=== PATIENT | female | born 1980 | race African-American/Black ===

== ENCOUNTER 2017-06-27 15:46 | Inpatient (IN) | payer OTHER ==
[2017-06-27 18:58] VITALS: BMI 38.9
--- NOTE | 2017-06-27 19:05 | HP ---
COWS - Scale Resting Pulse: 1= [place] 81-100 Sweatin= Chills/Flushing Restless Observation: 3= Extraneous Movement Pupil Size: 0= Normal to Room Light Bone or Joint Aches: 2= Severe Diffuse Aches Runny Nose/ Eye Tearin= Runny Nose/Eyes GI Upset > 30mins: 1= Stomach Cramp Tremor Observation: 2= Slight Tremor Visible Yawning Observation: 0= None Anxiety or Irritability: 2=Irritable/Anxious Goose Flesh Skin: 0=Smooth Skin COWS Score: 14 CIWA Score - CIWA Score Nausea/Vomitin-Mild Nausea/No Vomiting Muscle Tremors: 3 Anxiety: 4-Mod. Anxious/Guarded Agitation: 3 Paroxysmal Sweats: 1-Minimal Palms Moist Orientation: 1-Uncertain about Date Tacttile Disturbances: 0-None Auditory Disturbances: 0-None Visual Disturbances: 0-None Headache: 1-Very Mild CIWA-Ar Total Score: 14 Admission ROS BHS - HPI Chief Complaint: WITHDRAWAL SX Allergies/Adverse Reactions: Allergies Allergy/AdvReac Type Severity Reaction Status Date / Time No Known Allergies Allergy Verified 10/16/16 14:56 History of Present Illness: 36 YEARS OLD FEMALE WITH LONG HISTORY OF ALCOHOL HEROIN NICOTINE DEPENDENCE HAS ASTHMA AND BIPOLAR II IS ADMITTED TO DETOX Exam Limitations: No Limitations - Ebola screening Have you traveled outside of the country in the last 21 days: No Have you had contact with anyone from an Ebola affected area: No Have you been sick,other than usual withdrawal symptoms: No Do you have a fever: No - Review of Systems Constitutional: Changes in sleep, Weight Stable EENT: reports: No Symptoms Reported Respiratory: reports: SOB with Exertion, Productive cough (GREENISH) Cardiac: reports: No Symptoms Reported GI: reports: Nausea, Poor Fluid Intake, Indigestion, Abdominal cramping : reports: No Symptoms Reported Musculoskeletal: reports: Back Pain, Joint Pain, Muscle Pain, Neck Pain Integumentary: reports: No Symptoms Reported Neuro: reports: Tremors Endocrine: reports: No Symptoms Reported Hematology: reports: No Symptoms Reported Psychiatric: reports: Judgement Intact, Anxious, Depressed Other Systems: Reviewed and Negative Patient History - Patient Medical History Hx Anemia: No Hx Asthma: Yes (ON ALBUTEROL INHALLER) Hx Chronic Obstructive Pulmonary Disease (COPD): No Hx Cancer: No Hx Cardiac Disorders: No Hx Congestive Heart Failure: No Hx Hypertension: No Hx Hypercholesterolemia: No Hx Pacemaker: No HX Cerebrovascular Accident: No Hx Seizures: No Hx Dementia: No Hx Diabetes: No Hx Gastrointestinal Disorders: No Hx Liver Disease: No Hx Genitourinary Disorders: No Hx Sexually Transmitted Disorders: No Hx Renal Disease (ESRD): No Hx Thyroid Disease: No Hx Human Immunodeficiency Virus (HIV): No (LAST 08/01) Hx Hepatitis C: No Hx Depression: No Hx Suicide Attempt: Yes (OVER DOSE AGE 18) Hx Bipolar Disorder: Yes Hx Schizophrenia: No - Patient Surgical History Past Surgical History: Yes Hx Neurologic Surgery: No Hx Cataract Extraction: No Hx Cardiac Surgery: No Hx Lung Surgery: No Hx Breast Surgery: No Hx Breast Biopsy: No Hx Abdominal Surgery: No Hx Appendectomy: No Hx Cholecystectomy: No Hx Genitourinary Surgery: No Hx Section: No Hx Orthopedic Surgery: Yes (REMOVAL OF GANGLION LEFT WRIST 09/21) Hx Hysterectomy: No Other Surgical History: REMOVED LEFT TUBE AND OVARY 2011 Anesthesia Reaction: No - PPD History Previous Implant?: Yes Documented Results: Negative w/proof Implanted On Prior [facility] Admission?: Yes Date: 05/23/16 Results: 0 MM PPD to be Administered?: Yes - Reproductive History Patient is a Female of Child Bearing Age (11 -55 yrs old): Yes Last Menstrual Period: 06/03/17 Patient : No - Smoking Cessation Smoking history: Current every day smoker Have you smoked in the past 12 months: Yes Aproximately how many cigarettes per day: 20 Cigars Per Day: 0 Hx Chewing Tobacco Use: No Initiated information on smoking cessation: Yes 'Breaking Loose' booklet given: 06/27/17 - Substance & Tx. History Hx Alcohol Use: Yes Hx Substance Use: Yes Substance Use Type: Alcohol, Cocaine, Heroin, Marijuana Hx Substance Use Treatment: Yes (10/16-10/23/16 [facility]) - Substances Abused Alcohol Route: Oral Frequency: Daily Amount used: VOLKA 5 PINTS Age of first use: 21 Date of Last Use: 06/27/17 Heroin Route: Inhalation Frequency: Daily Amount used: 4 BAGS Age of first use: 35 Date of Last Use: 06/27/17 Family Disease History - Family Disease History Family Disease History: Diabetes: Grandparent, Other: Father (ADE'S), Mother Admission Physical Exam BHS - Vital Signs Vital Signs: Vital Signs - 24 hr 06/27/17 18:46 Temperature 98.9 F Pulse Rate 90 Respiratory 18 Rate Blood Pressure 130/90 - Physical General Appearance: Yes: Appropriately Dressed, Mild Distress, Obese, Tremorous , Irritable, Sweating, Anxious HEENTM: Yes: Hearing grossly Normal, Normal ENT Inspection, Normocephalic, Normal Voice Respiratory: Yes: Chest Non-Tender, Lungs Clear, Normal Breath Sounds, No Respiratory Distress, No Accessory Muscle Use Neck: Yes: Supple, Trachea in good position Breast: Yes: Breasts Symetrical Cardiology: Yes: Regular Rhythm, S1, S2, Tachycardia Abdominal: Yes: Non Tender, Soft, Increased Bowel Sounds Genitourinary: Yes: Within Normal Limits Back: Yes: Normal Inspection Musculoskeletal: Yes: full range of Motion, Gait Steady, Back pain, Muscle Pain Extremities: Yes: Normal Range of Motion, Non-Tender, Tremors, Swelling (RIGHT FOOT) Neurological: Yes: Fully Oriented, Alert, Motor Strength 5/5, Normal Response, Depressed Affect Integumentary: Yes: Warm Lymphatic: Yes: Within Normal Limits - Diagnostic (1) Alcohol dependence with uncomplicated withdrawal Current Visit: Yes Status: Acute (2) Nicotine dependence Current Visit: Yes Status: Acute Qualifiers: Nicotine product type: cigarettes Substance use status: in withdrawal Qualified Code(s): F17.213 - Nicotine dependence, cigarettes, with withdrawal (3) Opioid dependence with withdrawal Current Visit: Yes Status: Acute (4) Asthma Current Visit: Yes Status: Chronic Qualifiers: Asthma severity: mild intermittent Asthma complication type: with status asthmaticus Qualified Code(s): J45.22 - Mild intermittent asthma with status asthmaticus (5) Bipolar 1 disorder, manic, moderate Current Visit: No Status: Suspected (6) GERD (gastroesophageal reflux disease) Current Visit: Yes Status: Chronic Qualifiers: Esophagitis presence: without esophagitis Qualified Code(s): K21.9 - Gastro-esophageal reflux disease without esophagitis Cleared for Admission [facility] - Detox or Rehab [facility] Level of Care: Medically Managed Detox Regimen/Protocol: Methadone/Librium [facility] Breath Alcohol Content Breath Alcohol Content: 0 Urine Pregancy Test - Result Urine Test Results: Negative- NO Line Present Urine Drug Screen - Results Drug Screen Negative: No Urine Drug Screen Results: THC-Marijuana, RO[place]-Cocaine, OPI-Opiates
[2017-06-27] MEDS ORDERED: METHADONE HCL 10 MG TABLET (FOR DETOX USE ONLY) PO ONE ×2 (19:14→23:00)
[2017-06-27] MEDS ORDERED: LOPERAMIDE HCL 2 MG CAPSULE PO PRN (19:14)
[2017-06-27] MEDS ORDERED: ACETAMINOPHEN 325 MG TABLET (FP) PO PRN (19:14)
[2017-06-27] MEDS ORDERED: guaiFENesin/D-METHORPHAN HB 10 ML UNIT-DOSE CUPS PO PRN (19:14)
[2017-06-27] MEDS ORDERED: P-EPHED 60MG/TRIPROLIDI 2.5MG TABLET PO PRN (19:14)
[2017-06-27] MEDS ORDERED: NICOTINE POLACRILEX 4 MG GUM BUC PRN (19:14)
[2017-06-27] MEDS ORDERED: MAGNESIUM CITRATE 300 ML BOTTLE PO PRN (19:14)
[2017-06-27] MEDS ORDERED: diphenhydrAMINE HCL 50 MG CAPSULE PO PRN (19:14)
[2017-06-27] MEDS ORDERED: chlordiazePOXIDE HCL 25 MG CAPSULE PO PRN (19:14)
[2017-06-27] MEDS ORDERED: MAGNESIUM HYDROX 2400MG/30ML ORAL SUSPENSION 30 ML CUP PO PRN (19:14)
[2017-06-27] MEDS ORDERED: MAG HYDROX/AL HYDROX/SIMETH 30 ML UNIT-DOSE CUP PO PRN (19:14)
[2017-06-27] MEDS ORDERED: MENTHOL/PHENOL 1 EACH UD MM PRN (19:14)
[2017-06-27] MEDS ORDERED: ALBUTEROL SO4 6.7 GM HFA INHALER IH PRN (19:15)
[2017-06-27] MEDS ORDERED: METHADONE HCL 10 MG TABLET (FOR DETOX USE ONLY) ONE (22:45)
[2017-06-27] MEDS: chlordiazePOXIDE HCL 25 MG CAPSULE PO SCH (22:46)
[2017-06-27] MEDS: THIAMINE HCL 100 MG TABLET (FP) PO SCH (22:46)
[2017-06-27] MEDS: RANITIDINE HCL 150 MG TABLET (FP) PO SCH (22:47)
[2017-06-27 23:46] LABS: URINE APPEARANCE SLCLOUDY; URINE BILIRUBIN NEGATIVE (NEGATIVE); URINE BLOOD NEGATIVE (NEGATIVE); URINE COLOR AMBER; URINE GLUCOSE (UA) NEGATIVE (NEGATIVE); URINE KETONE NEGATIVE (NEGATIVE); URINE LEUK ESTERASE NEGATIVE (NEGATIVE); URINE NITRITE NEGATIVE (NEGATIVE); URINE UROBILINOGEN 4.0 E.U/dl mg/dL (0.2-1.0)
[2017-06-27 23:58] LABS: URINE PROTEIN 1+ (NEGATIVE)
[2017-06-28 00:03] LABS: URINE BACTERIA RARE /hpf (NONE SEEN); URINE MUCUS MODERATE; URINE RBC <1 /hpf (0-3); URINE WBC 1 /hpf (3-5)
[2017-06-28] MEDS: chlordiazePOXIDE HCL 25 MG CAPSULE PO SCH ×4 (06:39→22:27)
--- NOTE | 2017-06-28 09:20 | CONSULT ---
[facility] Psychiatric Consult - Data Date of interview: 06/28/17 Admission source: [facility] Identifying data: This is 36 years old AA female ,single,homelles,supported by PA. Substance Abuse History: Reports using heroin since 35 yo,spending about $40 daily,drinking since 21 years old (pint of whiskey,beer),crack/cocaine since 29 years old,$200. Medical History: Significant for BA,Disk disease. Psychiatric History: Reports being dx with Bipolar disorder with a few psychiatric hospitalizations,history of suicidal attempts.She is currently under psychiatric care at [facility].Medications:Neurontin 300 mg po bid,Prozac 40 mg po daily,abilify 20 mg po daily,Doxepin 150 mg po hs and Topamaxd 100 mg po bid. Physical/Sexual Abuse/Trauma History: denies history of sexual,physical abuse. Mental Status Exam - Mental Status Exam Alert and Oriented to: Time, Place, Person Cognitive Function: Grossly Intact Patient Appearance: Unkempt Mood: Sad Affect: Mood Congruent Patient Behavior: Sedated Speech Pattern: Clear Voice Loudness: Normal Thought Process: Goal Oriented Thought Disorder: Being Controlled Hallucinations: Denies Suicidal Ideation: Denies Homicidal Ideation: Denies Insight/Judgement: Fair Sleep: Fair Appetite: Fair Muscle strength/Tone: Normal Gait/Station: Normal Psychiatric Findings - Problem List (Protem 1, 2,3) (1) Alcohol dependence with uncomplicated withdrawal Current Visit: Yes Status: Chronic (2) Nicotine dependence Current Visit: Yes Status: Chronic Qualifiers: Nicotine product type: cigarettes Substance use status: in withdrawal Qualified Code(s): F17.213 - Nicotine dependence, cigarettes, with withdrawal (3) Opioid dependence with withdrawal Current Visit: Yes Status: Chronic (4) Asthma Current Visit: Yes Status: Chronic Qualifiers: Asthma severity: mild intermittent Asthma complication type: with status asthmaticus Qualified Code(s): J45.22 - Mild intermittent asthma with status asthmaticus (5) GERD (gastroesophageal reflux disease) Current Visit: Yes Status: Chronic Qualifiers: Esophagitis presence: without esophagitis Qualified Code(s): K21.9 - Gastro-esophageal reflux disease without esophagitis (6) Anemia Current Visit: Yes Status: Chronic (7) Bipolar disorder Current Visit: Yes Status: Suspected (8) Cocaine dependence in controlled environment Current Visit: Yes Status: Chronic - Initial Treatment Plan Initial Treatment Plan: Continue current medications as per plan.
[2017-06-28] MEDS ORDERED: METHADONE HCL 10 MG TABLET (FOR DETOX USE ONLY) PO SCH (10:00)
--- NOTE | 2017-06-28 10:07 | PN ---
[facility] CIWA - CIWA Score Nausea/Vomitin Muscle Tremors: 3 Anxiety: 3 Agitation: 2 Paroxysmal Sweats: 1-Minimal Palms Moist Orientation: 0-Oriented Tacttile Disturbances: 1-Very Mild Itch/Numbness Auditory Disturbances: 1-Very Mild Visual Disturbances: 1-Very Mild Sensitivity Headache: 2-Mild CIWA-Ar Total Score: 17 BHS COWS - Scale Resting Pulse: 0= [place] 80 or Below Sweatin= Chills/Flushing Restless Observation: 3= Extraneous Movement Pupil Size: 1= Pupils >than Normal Bone or Joint Aches: 2= Severe Diffuse Aches Runny Nose/ Eye Tearin= Runny Nose/Eyes GI Upset > 30mins: 2= Nausea/Diarrhea Tremor Observation of Outstretched Hands: 2= Slight Tremor Visible Yawning Observation: 1= 1-2x During Session Anxiety or Irritability: 2=Irritable/Anxious Goose Flesh Skin: 0=Smooth Skin COWS Score: 16 S Progress Note (SOAP) Subjective: alert,pain in the body and back,tremor,irritable,interrupted sleep,swelling with pain in the right foot for 2 weeks,denied trauma Objective: 06/28/17 10:05 Vital Signs Temperature 97.3 F L 06/28/17 06:54 Pulse Rate 72 06/28/17 06:54 Respiratory Rate 18 06/28/17 06:54 Blood Pressure 101/58 06/28/17 06:54 O2 Sat by Pulse Oximetry (%) ekg normal ecg 06/28/17 10:06 labs pending Assessment: 06/28/17 10:06 withdrawal symptom Plan: continue detox,x ray of right foot today
[2017-06-28 10:21] LABS: MCH 30.9 pg (25.7-33.7); MCHC 32.8 g/dl (32.0-36.0); MEAN CELL VOLUME 94.2 fl (80-96); MEAN PLT VOLUME 8.8 fl (7.5-11.1); PLATELET COUNT 268 K/MM3 (134-434); RDW 13.6 % (11.6-15.6); WHITE BLOOD COUNT 7.3 K/mm3 (4.0-10.0)
[2017-06-28] MEDS: RANITIDINE HCL 150 MG TABLET (FP) PO SCH ×2 (10:30→22:26)
[2017-06-28] MEDS: PRENATAL VITAMINS W/ FOLIC ACID TABLET (FP) PO SCH (10:30)
[2017-06-28] MEDS: ARIPiprazole 10 MG TABLET PO SCH (10:31)
[2017-06-28] MEDS: GABAPENTIN 300 MG CAPSULE (FP) PO SCH ×2 (10:32→22:26)
[2017-06-28] MEDS: NICOTINE 21 MG/24 HOURS TOPICAL PATCH TD SCH (10:35)
[2017-06-28] MEDS: FLUoxetine HCL 20 MG CAPSULE (FP) PO SCH (10:36)
[2017-06-28] MEDS: TOPIRAMATE 100 MG TABLET PO SCH ×2 (11:00→22:27)
[2017-06-28 11:43] LABS: ALK PHOS 71 U/L (45-117); ANION GAP 10 (8-16); BILIRUBIN,TOTAL 0.4 mg/dL (0.2-1.0); CALCIUM 8.4 mg/dL (8.5-10.1); CO2 24 mmol/L (21-32); CREATININE 0.9 mg/dL (0.55-1.02); GLUCOSE,RANDOM 107 mg/dL (74-106); SGOT/AST 10 U/L (15-37); SGPT/ALT 15 U/L (12-78); TOT PROT 6.3 g/dl (6.4-8.2)
[2017-06-28 11:51] LABS: HIV 1 & 2 AB NEGATIVE; HIV 1 AGp24 NEGATIVE
[2017-06-28] MEDS ORDERED: PNEUMOC 13-VAL CONJ-DIP CRM/PF 0.5 ML DISP.SYRIN IM ONE (15:57)
[2017-06-28] MEDS: THIAMINE HCL 100 MG TABLET (FP) PO SCH (22:26)
[2017-06-28] MEDS: DOXEPIN HCL 50 MG CAPSULE PO SCH (22:27)
[2017-06-29] MEDS: chlordiazePOXIDE HCL 25 MG CAPSULE PO SCH ×3 (06:33→18:21)
--- NOTE | 2017-06-29 09:51 | EKG ---
Test Reason : Blood Pressure : / mmHG Vent. Rate : 077 BPM Atrial Rate : 077 BPM P-R Int : 152 ms QRS Dur : 088 ms QT Int : 394 ms P-R-T Axes : 029 075 066 degrees QTc Int : 445 ms NORMAL SINUS RHYTHM NORMAL ECG WHEN COMPARED WITH ECG OF 17-OCT-2016 06:28, T WAVE INVERSION NOW EVIDENT IN ANTERIOR LEADS Confirmed by MD TIMOTHY, SCARLET ([id number]) on 06/29/2017 9:50:47 AM Referred By: Confirmed By:SCARLET AGUIRRE MD
[2017-06-29] MEDS: FLUoxetine HCL 20 MG CAPSULE (FP) PO SCH (10:55)
[2017-06-29] MEDS: RANITIDINE HCL 150 MG TABLET (FP) PO SCH ×2 (10:55→22:20)
[2017-06-29] MEDS: PRENATAL VITAMINS W/ FOLIC ACID TABLET (FP) PO SCH (10:56)
[2017-06-29] MEDS: GABAPENTIN 300 MG CAPSULE (FP) PO SCH ×2 (10:56→22:20)
[2017-06-29] MEDS: TOPIRAMATE 100 MG TABLET PO SCH ×2 (10:56→22:20)
[2017-06-29] MEDS: METHADONE HCL 5 MG TABLET (FOR DETOX USE ONLY) PO SCH (10:56)
[2017-06-29] MEDS: NICOTINE 21 MG/24 HOURS TOPICAL PATCH TD SCH (10:56)
[2017-06-29] MEDS: ARIPiprazole 10 MG TABLET PO SCH (10:57)
[2017-06-29] MEDS ORDERED: PNEUMOCOCCAL 23 VACCINE 0.5 ML VIAL IM ONE (12:00)
[2017-06-29] MEDS: LIDOCAINE 5% TOPICAL PATCH TP SCH (12:00)
--- NOTE | 2017-06-29 12:31 | PN ---
[facility] CIWA - CIWA Score Nausea/Vomitin Muscle Tremors: 3 Anxiety: 2 Agitation: 3 Paroxysmal Sweats: 1-Minimal Palms Moist Orientation: 0-Oriented Tacttile Disturbances: 1-Very Mild Itch/Numbness Auditory Disturbances: 1-Very Mild Visual Disturbances: 1-Very Mild Sensitivity Headache: 2-Mild CIWA-Ar Total Score: 17 BHS COWS - Scale Resting Pulse: 2= [place] 101-120 Sweatin= Chills/Flushing Restless Observation: 3= Extraneous Movement Pupil Size: 1= Pupils >than Normal Bone or Joint Aches: 2= Severe Diffuse Aches Runny Nose/ Eye Tearin= Runny Nose/Eyes GI Upset > 30mins: 2= Nausea/Diarrhea Tremor Observation of Outstretched Hands: 2= Slight Tremor Visible Yawning Observation: 1= 1-2x During Session Anxiety or Irritability: 2=Irritable/Anxious Goose Flesh Skin: 0=Smooth Skin COWS Score: 18 S Progress Note (SOAP) Subjective: alert,irritable,anxious,interrupted sleep,tremor,pain in the body and back Objective: 06/29/17 12:28 Vital Signs Temperature 97.7 F 06/29/17 10:57 Pulse Rate 114 H 06/29/17 10:57 Respiratory Rate 16 06/29/17 10:57 Blood Pressure 100/65 06/29/17 10:57 O2 Sat by Pulse Oximetry (%) Laboratory Last Values WBC 7.3 K/mm3 (4.0-10.0) 06/28/17 07:40 RBC 3.50 M/mm3 (3.60-5.2) L 06/28/17 07:40 Hgb 10.8 GM/dL (10.7-15.3) 06/28/17 07:40 Hct 32.9 % (32.4-45.2) 06/28/17 07:40 MCV 94.2 fl (80-96) 06/28/17 07:40 MCH 30.9 pg (25.7-33.7) 06/28/17 07:40 MCHC 32.8 g/dl (32.0-36.0) 06/28/17 07:40 RDW 13.6 % (11.6-15.6) 06/28/17 07:40 Plt Count 268 K/MM3 (134-434) D 06/28/17 07:40 MPV 8.8 fl (7.5-11.1) 06/28/17 07:40 Sodium 142 mmol/L (136-145) 06/28/17 07:40 Potassium 3.9 mmol/L (3.5-5.1) 06/28/17 07:40 Chloride 108 mmol/L (98-107) H 06/28/17 07:40 Carbon Dioxide 24 mmol/L (21-32) D 06/28/17 07:40 Anion Gap 10 (8-16) 06/28/17 07:40 BUN 12 mg/dL (7-18) 06/28/17 07:40 Creatinine 0.9 mg/dL (0.55-1.02) 06/28/17 07:40 Creat Clearance w eGFR > 60 (>60) 06/28/17 07:40 Random Glucose 107 mg/dL (74-106) H D 06/28/17 07:40 Calcium 8.4 mg/dL (8.5-10.1) L 06/28/17 07:40 Total Bilirubin 0.4 mg/dL (0.2-1.0) D 06/28/17 07:40 AST 10 U/L (15-37) L D 06/28/17 07:40 ALT 15 U/L (12-78) D 06/28/17 07:40 Alkaline Phosphatase 71 U/L (45-117) 06/28/17 07:40 Total Protein 6.3 g/dl (6.4-8.2) L 06/28/17 07:40 Albumin 3.0 g/dl (3.4-5.0) L 06/28/17 07:40 Urine Color Jeannie 06/27/17 21:59 Urine Appearance Slcloudy 06/27/17 21:59 Urine pH 5.0 (5.0-8.0) D 06/27/17 21:59 Ur Specific [place] >= 1.030 (1.005-1.025) H 06/27/17 21:59 Urine Protein 1+ (NEGATIVE) H 06/27/17 21:59 Urine Glucose (UA) Negative (NEGATIVE) 06/27/17 21:59 Urine Ketones Negative (NEGATIVE) 06/27/17 21:59 Urine Blood Negative (NEGATIVE) 06/27/17 21:59 Urine Nitrite Negative (NEGATIVE) 06/27/17 21:59 Urine Bilirubin Negative (NEGATIVE) 06/27/17 21:59 Urine Urobilinogen 4.0 e.u/dl mg/dL (0.2-1.0) H 06/27/17 21:59 Urine RBC <1 /hpf (0-3) 06/27/17 21:59 Urine WBC 1 /hpf (3-5) 06/27/17 21:59 Ur Epithelial Cells Rare /hpf (FEW) 06/27/17 21:59 Urine Bacteria Rare /hpf (NONE SEEN) 06/27/17 21:59 Urine Mucus Moderate 06/27/17 21:59 RPR Titer Nonreactive (NONREACTIVE) 06/28/17 07:40 Hepatitis C Antibody <0.1 s/co ratio (0.0-0.9) 06/28/17 07:40 HIV 1&2 Antibody Screen Negative 06/28/17 07:40 HIV P24 Antigen Negative 06/28/17 07:40 Assessment: 06/29/17 12:29 withdrawal symptom Plan: continue detox,lidoderm patch for low back pain
[2017-06-29] MEDS: LIDOCAINE PATCH REMOVAL MC SCH (22:20)
[2017-06-29] MEDS: DOXEPIN HCL 50 MG CAPSULE PO SCH (22:20)
[2017-06-29] MEDS: THIAMINE HCL 100 MG TABLET (FP) PO SCH (22:20)
[2017-06-29] MEDS: chlordiazePOXIDE 5 MG CAPSULE PO SCH (22:23)
[2017-06-30] MEDS: chlordiazePOXIDE 5 MG CAPSULE PO SCH ×3 (05:44→17:44)
--- NOTE | 2017-06-30 09:08 | PN ---
BHS Progress Note (SOAP) Subjective: ALERT,IRRITABLE,ANXIOUS,INTERRUPTED SLEEP,PAIN IN THE BACK BODY Objective: 06/30/17 09:07 Laboratory Last Values WBC 7.3 K/mm3 (4.0-10.0) 06/28/17 07:40 RBC 3.50 M/mm3 (3.60-5.2) L 06/28/17 07:40 Hgb 10.8 GM/dL (10.7-15.3) 06/28/17 07:40 Hct 32.9 % (32.4-45.2) 06/28/17 07:40 MCV 94.2 fl (80-96) 06/28/17 07:40 MCH 30.9 pg (25.7-33.7) 06/28/17 07:40 MCHC 32.8 g/dl (32.0-36.0) 06/28/17 07:40 RDW 13.6 % (11.6-15.6) 06/28/17 07:40 Plt Count 268 K/MM3 (134-434) D 06/28/17 07:40 MPV 8.8 fl (7.5-11.1) 06/28/17 07:40 Sodium 142 mmol/L (136-145) 06/28/17 07:40 Potassium 3.9 mmol/L (3.5-5.1) 06/28/17 07:40 Chloride 108 mmol/L (98-107) H 06/28/17 07:40 Carbon Dioxide 24 mmol/L (21-32) D 06/28/17 07:40 Anion Gap 10 (8-16) 06/28/17 07:40 BUN 12 mg/dL (7-18) 06/28/17 07:40 Creatinine 0.9 mg/dL (0.55-1.02) 06/28/17 07:40 Creat Clearance w eGFR > 60 (>60) 06/28/17 07:40 Random Glucose 107 mg/dL (74-106) H D 06/28/17 07:40 Calcium 8.4 mg/dL (8.5-10.1) L 06/28/17 07:40 Total Bilirubin 0.4 mg/dL (0.2-1.0) D 06/28/17 07:40 AST 10 U/L (15-37) L D 06/28/17 07:40 ALT 15 U/L (12-78) D 06/28/17 07:40 Alkaline Phosphatase 71 U/L (45-117) 06/28/17 07:40 Total Protein 6.3 g/dl (6.4-8.2) L 06/28/17 07:40 Albumin 3.0 g/dl (3.4-5.0) L 06/28/17 07:40 Urine Color Jeannie 06/27/17 21:59 Urine Appearance Slcloudy 06/27/17 21:59 Urine pH 5.0 (5.0-8.0) D 06/27/17 21:59 Ur Specific [place] >= 1.030 (1.005-1.025) H 06/27/17 21:59 Urine Protein 1+ (NEGATIVE) H 06/27/17 21:59 Urine Glucose (UA) Negative (NEGATIVE) 06/27/17 21:59 Urine Ketones Negative (NEGATIVE) 06/27/17 21:59 Urine Blood Negative (NEGATIVE) 06/27/17 21:59 Urine Nitrite Negative (NEGATIVE) 06/27/17 21:59 Urine Bilirubin Negative (NEGATIVE) 06/27/17 21:59 Urine Urobilinogen 4.0 e.u/dl mg/dL (0.2-1.0) H 06/27/17 21:59 Urine RBC <1 /hpf (0-3) 06/27/17 21:59 Urine WBC 1 /hpf (3-5) 06/27/17 21:59 Ur Epithelial Cells Rare /hpf (FEW) 06/27/17 21:59 Urine Bacteria Rare /hpf (NONE SEEN) 06/27/17 21:59 Urine Mucus Moderate 06/27/17 21:59 RPR Titer Nonreactive (NONREACTIVE) 06/28/17 07:40 Hepatitis C Antibody <0.1 s/co ratio (0.0-0.9) 06/28/17 07:40 HIV 1&2 Antibody Screen Negative 06/28/17 07:40 HIV P24 Antigen Negative 06/28/17 07:40 Assessment: 06/30/17 09:08 WITHDRAWAL SYMPTOM Plan: CONTINUE DETOX,X RAY OF RIGHT FOOT NO ACUTE PATHOLOGY
[2017-06-30] MEDS: FLUoxetine HCL 20 MG CAPSULE (FP) PO SCH (10:49)
[2017-06-30] MEDS: RANITIDINE HCL 150 MG TABLET (FP) PO SCH ×2 (10:49→22:53)
[2017-06-30] MEDS: TOPIRAMATE 100 MG TABLET PO SCH ×2 (10:49→22:54)
[2017-06-30] MEDS: PRENATAL VITAMINS W/ FOLIC ACID TABLET (FP) PO SCH (10:49)
[2017-06-30] MEDS: METHADONE HCL 5 MG TABLET (FOR DETOX USE ONLY) PO SCH (10:50)
[2017-06-30] MEDS: GABAPENTIN 300 MG CAPSULE (FP) PO SCH ×2 (10:50→22:54)
[2017-06-30] MEDS: LIDOCAINE 5% TOPICAL PATCH TP SCH (10:52)
[2017-06-30] MEDS: ARIPiprazole 10 MG TABLET PO SCH (10:53)
[2017-06-30] MEDS: NICOTINE 21 MG/24 HOURS TOPICAL PATCH TD SCH (10:54)
[2017-06-30] MEDS: DOXEPIN HCL 50 MG CAPSULE PO SCH (22:53)
[2017-06-30] MEDS: THIAMINE HCL 100 MG TABLET (FP) PO SCH (22:53)
[2017-06-30] MEDS: chlordiazePOXIDE HCL 10 MG CAPSULE PO SCH (23:14)
[2017-06-30] MEDS: LIDOCAINE PATCH REMOVAL MC SCH (23:15)
[2017-07-01] MEDS: chlordiazePOXIDE HCL 10 MG CAPSULE PO SCH ×3 (06:45→17:36)
[2017-07-01] MEDS ORDERED: ARIPiprazole 5 MG TABLET (FP) ONE (09:09)
[2017-07-01] MEDS ORDERED: METHADONE HCL 10 MG TABLET (FOR DETOX USE ONLY) PO SCH (10:00)
--- NOTE | 2017-07-01 10:08 | PN ---
BHS Progress Note (SOAP) Subjective: ALERT,INTERRUPTED SLEEP Objective: 07/01/17 10:07 Vital Signs Temperature 97.2 F L 07/01/17 06:36 Pulse Rate 101 H 07/01/17 06:36 Respiratory Rate 16 07/01/17 06:36 Blood Pressure 103/65 07/01/17 06:36 O2 Sat by Pulse Oximetry (%) 07/01/17 10:11 Assessment: 07/01/17 10:08 WITHDRAWAL SYMPTOM 07/01/17 10:11 Plan: CONTINUE DETOX,DISCHARGE IN AM
[2017-07-01] MEDS: PRENATAL VITAMINS W/ FOLIC ACID TABLET (FP) PO SCH (10:20)
[2017-07-01] MEDS: TOPIRAMATE 100 MG TABLET PO SCH ×2 (10:20→22:47)
[2017-07-01] MEDS: GABAPENTIN 300 MG CAPSULE (FP) PO SCH ×2 (10:20→22:47)
[2017-07-01] MEDS: FLUoxetine HCL 20 MG CAPSULE (FP) PO SCH (10:20)
[2017-07-01] MEDS: RANITIDINE HCL 150 MG TABLET (FP) PO SCH ×2 (10:20→22:47)
[2017-07-01] MEDS: ARIPiprazole 10 MG TABLET PO SCH (10:21)
[2017-07-01] MEDS: NICOTINE 21 MG/24 HOURS TOPICAL PATCH TD SCH (10:21)
[2017-07-01] MEDS: LIDOCAINE 5% TOPICAL PATCH TP SCH (10:21)
[2017-07-01] MEDS: DOXEPIN HCL 50 MG CAPSULE PO SCH (22:47)
[2017-07-01] MEDS: THIAMINE HCL 100 MG TABLET (FP) PO SCH (22:47)
[2017-07-01] MEDS: LIDOCAINE PATCH REMOVAL MC SCH (22:55)
[2017-07-02] MEDS ORDERED: METHADONE HCL 5 MG TABLET (FOR DETOX USE ONLY) PO SCH (06:00)
--- NOTE | 2017-07-02 07:59 | DS ---
[facility] Detox Discharge Summary Admission Date: 06/27/17 Discharge Date: 07/02/17 - History Present History: Alcohol Dependence, Opioid Dependence Additional Comments: FOLLOW UP WITH AFTER CARE PROGRAM ARRANGEMENT Pertinent Past History: ASTHMA NICOTINE DEPENDENCE GERD BIPOLAR 1 DISORDER - Physical Exam Results Vital Signs: Vital Signs Temperature 96.9 F L 07/02/17 06:40 Pulse Rate 101 H 07/02/17 06:40 Respiratory Rate 20 07/02/17 06:40 Blood Pressure 104/66 07/02/17 06:40 O2 Sat by Pulse Oximetry (%) Pertinent Admission Physical Exam Findings: WITHDRAWAL FINDING - Treatment Hospital Course: Detox Protocol Followed, Detoxed Safely, Responded well, Discharged Condition Good Patient has Accepted a Rehab Referral to: [facility]CL[facility]ED - Medication Discharge Medications: Ambulatory Orders Aripiprazole [Abilify -] 20 mg PO DAILY 05/21/16 Doxepin HCl 150 mg PO HS 10/16/16 Naltrexone HCl [Revia -] 100 mg PO BID 10/16/16 Topiramate [Topamax -] 150 mg PO BID 10/16/16 Fluoxetine HCl [Prozac -] 40 mg PO DAILY #30 capsule 10/17/16 Albuterol Sulfate Inhaler - [Ventolin HFA Inhaler -] 2 puff IH Q4H PRN #1 inhaler 10/23/16 Aripiprazole [Abilify -] 20 mg PO DAILY #30 tablet 06/28/17 Doxepin HCl [Sinequan -] 150 mg PO HS #90 cap MDD 150 06/28/17 Fluoxetine HCl [Prozac -] 40 mg PO DAILY #60 cap 06/28/17 Gabapentin [Neurontin -] 300 mg PO BID #60 cap 06/28/17 Topiramate [Topamax -] 100 mg PO BID #60 tablet MDD 200 06/28/17 - Diagnosis (1) Opioid dependence with withdrawal Current Visit: Yes Status: Chronic (2) Alcohol dependence with uncomplicated withdrawal Current Visit: Yes Status: Chronic (3) Anemia Current Visit: Yes Status: Chronic (4) GERD (gastroesophageal reflux disease) Current Visit: Yes Status: Chronic Qualifiers: Esophagitis presence: without esophagitis Qualified Code(s): K21.9 - Gastro-esophageal reflux disease without esophagitis (5) Nicotine dependence Current Visit: Yes Status: Chronic Qualifiers: Nicotine product type: cigarettes Substance use status: in withdrawal Qualified Code(s): F17.213 - Nicotine dependence, cigarettes, with withdrawal (6) Bipolar disorder Current Visit: Yes Status: Suspected (7) Bipolar 1 disorder, manic, moderate Current Visit: No Status: Suspected - AMA Did Patient Leave Against Medical Advice: No
[2017-07-02] MEDS: RANITIDINE HCL 150 MG TABLET (FP) PO SCH ×2 (10:43→22:26)
[2017-07-02] MEDS: PRENATAL VITAMINS W/ FOLIC ACID TABLET (FP) PO SCH (10:43)
[2017-07-02] MEDS: FLUoxetine HCL 20 MG CAPSULE (FP) PO SCH (10:43)
[2017-07-02] MEDS: GABAPENTIN 300 MG CAPSULE (FP) PO SCH (10:43)
[2017-07-02] MEDS: TOPIRAMATE 100 MG TABLET PO SCH (10:43)
[2017-07-02] MEDS: ARIPiprazole 10 MG TABLET PO SCH (10:44)
[2017-07-02] MEDS: LIDOCAINE 5% TOPICAL PATCH TP SCH (10:44)
[2017-07-02] MEDS: NICOTINE 21 MG/24 HOURS TOPICAL PATCH TD SCH (10:44)
--- NOTE | 2017-07-02 12:21 | PN ---
S Progress Note Note: psych re-evaluation ordered. pt is too groggy/sleepy and speech slurred for pt to be discharged today. It will not be safe for pt to be allowed to leave today. pt will be d/c tomorrow where pt is more awake and psych meds have been re-assessed.
--- NOTE | 2017-07-02 13:14 | PN ---
Psychiatric Progress Note Vital Signs: Vital Signs Period Temp Pulse Resp BP Sys/Meyer Pulse Ox Last 24 Hr 95.9 F-98.1 F 101-129 16-20 101-108/65-77 Date of Session: 07/02/17 Chief Complaint:: " I don't know." Patient is markedly sedated. HPI: Day 5 of detox treatment for this 36 y/o AA female addressing alcohol and opioid dependence co-morbid with Bipolar Disorder.Patient was scheduled for discharge today but,in view of heavy sedated state,this disposition was deferred.Psychiatric consultation is sought to address issue of medications. ROS: Patient is found lying in bed.Oversedated but able to awaken to the sound of her name.Heavily slurred.Disoriented and confused. Current Medications: Active Medications Generic Name Dose Route Start Last Admin Trade Name Freq PRN Reason Stop Dose Admin Acetaminophen 650 mg 06/27/17 19:14 06/27/17 22:48 Tylenol - PO 650 mg Q4H PRN Administration FEVER OR PAIN Al Hydroxide/Mg Hydroxide 30 ml 06/27/17 19:14 Mylanta Oral Suspension - PO Q6H PRN DYSPEPSIA Albuterol Sulfate 2 puff 06/27/17 19:15 Ventolin Hfa Inhaler - IH Q4H PRN SHORT OF BREATH/WHEEZING Aripiprazole 20 mg 06/28/17 10:00 07/02/17 10:44 Abilify PO 20 mg DAILY KIANA Administration Diphenhydramine HCl 50 mg 06/27/17 19:14 Benadryl - PO HSMR1 PRN INSOMNIA Eucalyptus/Menthol/Phenol/Sorbitol 1 each 06/27/17 19:14 Cepastat Lozenge - MM Q4H PRN SORE THROAT Guaifenesin 10 ml 06/27/17 19:14 Robitussin Dm - PO Q6H PRN COUGH Lidocaine 1 patch 06/29/17 11:15 07/02/17 10:44 Lidoderm Patch - TP 1 patch DAILY KIANA Administration Loperamide HCl 4 mg 06/27/17 19:14 Imodium - PO Q6H PRN DIARRHEA Magnesium Citrate 300 ml 06/27/17 19:14 Citroma - PO Q48H PRN CONSTIPATION Magnesium Hydroxide 30 ml 06/27/17 19:14 Milk Of Magnesia - PO DAILY PRN CONSTIPATION Miscellaneous 1 each 06/29/17 22:00 07/01/17 22:55 Lidoderm Patch Removal MC 1 each DAILY@2200 KIANA Administration Nicotine 21 mg 06/28/17 10:00 07/02/17 10:44 Nicoderm Patch - TD Not Given DAILY KIANA Nicotine Polacrilex 4 mg 06/27/17 19:14 06/28/17 10:35 Nicorette Gum - BUC 4 mg Q2H PRN Administration NICOTINE REPLACEMENT RX Multivit/Folic Acid/Iron 1 tab 06/28/17 10:00 07/02/17 10:43 Vitamins (Sjr) - PO 1 tab DAILY KIANA Administration Pseudoephedrine/Triprolidine 1 combo 06/27/17 19:14 Actifed - PO TID PRN NASAL CONGESTION Ranitidine HCl 150 mg 06/27/17 22:00 07/02/17 10:43 Zantac - PO 150 mg BID KIANA Administration Thiamine HCl 100 mg 06/27/17 22:00 07/01/17 22:47 Vitamin B1 - PO 100 mg HS KIANA Administration Medication(s) Change(s): Medications are reviewed.Doxepin 150 mg/hs + abilify 20 mg/day + prozac 40 mg/day + neurontin 600 mg/day + topamax 200 mg/day : all are discontinued.Pharmacy claims are revisited.Most recent scripts for these medications (much lesser doses) are dated 10/17/[address] Riggs.Patient was non-adherent to [facility] care (medications not taken for several weeks prior to this [facility] visit).Detox medications placed on hold. Current Side Effect: Yes (marked sedation due to medications.) Lab tests ordered: No Lab tests reviewed: Yes Provider note:: Called to re-evaluate this patient for alteration of mental status.Chart reviewed.Previous records revisited.Case discussed with nursing staff.Patient is evaluated at bedside.Ms Siegel is found disoriented to time ( believes date to be December 2016),partially oriented to place (this is a hospital / name not recalled) and person.She is disorganized,unsteady,incoherent and slurred.Clearly not capable of self care at this time.Potential for falls ( staff made aware).Patient is confined to bed and placed under close observation.Normal vitals.Discharge is deferred. Total face to face time:: 30 Mental Status Exam - Mental Status Exam Alert and Oriented to: Place (partially), Person (partially) Cognitive Function: Impaired Patient Appearance: Disheveled (obese,lying in bed) Mood: Withdrawn Affect: Constricted Patient Behavior: Sedated (markedly) Speech Pattern: Delayed, Slurred, Rambling Voice Loudness: Moderately Soft/Quiet Thought Process: Disorganized, Disoriented Thought Disorder: Not Present Gait/Station: Other (not observed;patient is lying in bed) Psychiatric Treatment Plan - Problem List (1) Sedated due to medication Current Visit: Yes (2) Alcohol dependence with uncomplicated withdrawal Current Visit: Yes (3) Cocaine dependence in controlled environment Current Visit: Yes (4) Opioid dependence with withdrawal Current Visit: Yes (5) Marijuana dependence Current Visit: Yes (6) Nicotine dependence Current Visit: Yes Qualifiers: Nicotine product type: cigarettes Substance use status: in withdrawal Qualified Code(s): F17.213 - Nicotine dependence, cigarettes, with withdrawal (7) Bipolar disorder Current Visit: Yes (8) GERD (gastroesophageal reflux disease) Current Visit: Yes Qualifiers: Esophagitis presence: without esophagitis Qualified Code(s): K21.9 - Gastro-esophageal reflux disease without esophagitis (9) Asthma Current Visit: Yes Qualifiers: Asthma severity: mild intermittent Asthma complication type: with status asthmaticus Qualified Code(s): J45.22 - Mild intermittent asthma with status asthmaticus
[2017-07-02] MEDS: THIAMINE HCL 100 MG TABLET (FP) PO SCH (22:26)
[2017-07-02] MEDS: LIDOCAINE PATCH REMOVAL MC SCH (22:55)
--- NOTE | 2017-07-02 23:37 | PN ---
[facility] Progress Note Note: Psychiatry Attending's note (follow up) : Called nurse in charge for update. Received report that patient slept through evening shift. Woke up at some point.Walked to station to request librium. Nurse indicates to verse writer that no medication was given. Patient able to take shower independently. Harness Mender recommends Close Observation overnight. Psychiatric re-evaluation will follow in AM.
--- NOTE | 2017-07-03 09:20 | PN ---
Psychiatric Progress Note Vital Signs: Vital Signs Period Temp Pulse Resp BP Sys/Meyer Pulse Ox Last 24 Hr 97.7 F-99.0 F 101-140 16-20 111-150/60-73 Date of Session: 07/03/17 Chief Complaint:: My medications HPI: Patient has been on hold psychiatric medications due to oversedated condition. Currently patient asking to restart her medications for anxiety and agitations Current Medications: Active Medications Generic Name Dose Route Start Last Admin Trade Name Mack PRN Reason Stop Dose Admin Acetaminophen 650 mg 06/27/17 19:14 06/27/17 22:48 Tylenol - PO 650 mg Q4H PRN Administration FEVER OR PAIN Al Hydroxide/Mg Hydroxide 30 ml 06/27/17 19:14 Mylanta Oral Suspension - PO Q6H PRN DYSPEPSIA Albuterol Sulfate 2 puff 06/27/17 19:15 Ventolin Hfa Inhaler - IH Q4H PRN SHORT OF BREATH/WHEEZING Aripiprazole 20 mg 07/03/17 10:00 Abilify PO DAILY KIANA Doxepin HCl 100 mg 07/03/17 10:00 Sinequan - PO DAILY KIANA Eucalyptus/Menthol/Phenol/Sorbitol 1 each 06/27/17 19:14 Cepastat Lozenge - MM Q4H PRN SORE THROAT Fluoxetine HCl 30 mg 07/03/17 10:00 Prozac - PO DAILY KIANA Guaifenesin 10 ml 06/27/17 19:14 Robitussin Dm - PO Q6H PRN COUGH Lidocaine 1 patch 06/29/17 11:15 07/02/17 10:44 Lidoderm Patch - TP 1 patch DAILY KIANA Administration Loperamide HCl 4 mg 06/27/17 19:14 Imodium - PO Q6H PRN DIARRHEA Magnesium Citrate 300 ml 06/27/17 19:14 Citroma - PO Q48H PRN CONSTIPATION Magnesium Hydroxide 30 ml 06/27/17 19:14 Milk Of Magnesia - PO DAILY PRN CONSTIPATION Miscellaneous 1 each 06/29/17 22:00 07/02/17 22:55 Lidoderm Patch Removal MC 1 each DAILY@2200 KIANA Administration Nicotine 21 mg 06/28/17 10:00 07/02/17 10:44 Nicoderm Patch - TD Not Given DAILY KIANA Nicotine Polacrilex 4 mg 06/27/17 19:14 06/28/17 10:35 Nicorette Gum - BUC 4 mg Q2H PRN Administration NICOTINE REPLACEMENT RX Multivit/Folic Acid/Iron 1 tab 06/28/17 10:00 07/02/17 10:43 Vitamins (Sjr) - PO 1 tab DAILY KIANA Administration Pseudoephedrine/Triprolidine 1 combo 06/27/17 19:14 Actifed - PO TID PRN NASAL CONGESTION Ranitidine HCl 150 mg 06/27/17 22:00 07/02/17 22:26 Zantac - PO 150 mg BID KIANA Administration Thiamine HCl 100 mg 06/27/17 22:00 07/02/17 22:26 Vitamin B1 - PO 100 mg HS KIANA Administration Medication(s) Change(s): Start: Prozac 30mg poqd. Abilify 20mg poiqd. Doxepin 100mg po qhs Mental Status Exam - Mental Status Exam Alert and Oriented to: Person Cognitive Function: Fair Patient Appearance: Well Groomed Mood: Anxious Affect: Mood Congruent Patient Behavior: Talkative, Cooperative Speech Pattern: Excessive Voice Loudness: Normal Thought Process: Goal Oriented Thought Disorder: Being Controlled Hallucinations: Denies Suicidal Ideation: Denies Homicidal Ideation: Denies Insight/Judgement: Fair Sleep: Fair Appetite: Weight gain Muscle strength/Tone: Normal Gait/Station: Normal Additional Comments: Prozac 30mg poqd. Abilify 20mg poiqd. Doxepin 100mg po qhs Psychiatric Treatment Plan - Problem List (1) Marijuana dependence Current Visit: Yes (2) Alcohol dependence with uncomplicated withdrawal Current Visit: Yes (3) Cocaine dependence in controlled environment Current Visit: Yes (4) GERD (gastroesophageal reflux disease) Current Visit: Yes Qualifiers: Esophagitis presence: without esophagitis Qualified Code(s): K21.9 - Gastro-esophageal reflux disease without esophagitis (5) Nicotine dependence Current Visit: Yes Qualifiers: Nicotine product type: cigarettes Substance use status: in withdrawal Qualified Code(s): F17.213 - Nicotine dependence, cigarettes, with withdrawal (6) Opioid dependence with withdrawal Current Visit: Yes (7) Bipolar disorder Current Visit: Yes (8) Cocaine dependence Current Visit: No (9) Opiate dependence Current Visit: No Qualifiers: Substance use status: uncomplicated Qualified Code(s): F11.20 - Opioid dependence, uncomplicated Initial treatment plan: Prozac 30mg poqd. Abilify 20mg poiqd. Doxepin 100mg po qhs
--- NOTE | 2017-07-03 09:52 | PN ---
S Progress Note Note: PATIENT IS ALERT,ORIENTED X 3,NO COMPLAINT,SEEN BY DR AMADO, STABLE FOR DISCHARGE TODAY FOLLOW UP WITH AFTER CARE PROGRAM ARC ARRANGEMENT
--- NOTE | 2017-07-03 09:56 | DS ---
[facility] Detox Discharge Summary Admission Date: 06/27/17 Discharge Date: 07/03/17 - History Present History: Alcohol Dependence, Opioid Dependence Additional Comments: SEEN BY PSYCHIATRIST TODAY,FOLLOW UP WITH AFTER CARE PROGRAM ARRANGEMENT Pertinent Past History: ASTHMA NICOTINE DEPENDENCE GERD BIPOLAR 1 DISORDER - Physical Exam Results Vital Signs: Vital Signs Temperature 97.9 F 07/03/17 06:19 Pulse Rate 101 H 07/03/17 06:19 Respiratory Rate 20 07/03/17 06:19 Blood Pressure 150/60 07/03/17 06:19 O2 Sat by Pulse Oximetry (%) Pertinent Admission Physical Exam Findings: WITHDRAWAL SYMPTOM - Treatment Hospital Course: Detox Protocol Followed, Detoxed Safely, Responded well, Discharged Condition Good Patient has Accepted a Rehab Referral to: FOLLOW UP WITH AFTER CARE PROGRAM ARRANGEMENT - Medication Discharge Medications: Ambulatory Orders Aripiprazole [Abilify -] 20 mg PO DAILY 05/21/16 Doxepin HCl 150 mg PO HS 10/16/16 Naltrexone HCl [Revia -] 100 mg PO BID 10/16/16 Topiramate [Topamax -] 150 mg PO BID 10/16/16 Fluoxetine HCl [Prozac -] 40 mg PO DAILY #30 capsule 10/17/16 Albuterol Sulfate Inhaler - [Ventolin HFA Inhaler -] 2 puff IH Q4H PRN #1 inhaler 10/23/16 Aripiprazole [Abilify -] 20 mg PO DAILY #30 tablet 06/28/17 Doxepin HCl [Sinequan -] 150 mg PO HS #90 cap MDD 150 06/28/17 Fluoxetine HCl [Prozac -] 40 mg PO DAILY #60 cap 06/28/17 Gabapentin [Neurontin -] 300 mg PO BID #60 cap 06/28/17 Topiramate [Topamax -] 100 mg PO BID #60 tablet MDD 200 06/28/17 Aripiprazole [Abilify -] 20 mg PO DAILY #30 tablet 07/03/17 Doxepin HCl [Sinequan -] 100 mg PO DAILY #30 cap 07/03/17 Fluoxetine HCl [Prozac -] 30 mg PO DAILY #30 cap 07/03/17 - Diagnosis (1) Opioid dependence with withdrawal Current Visit: Yes Status: Chronic (2) Alcohol dependence with uncomplicated withdrawal Current Visit: Yes Status: Chronic (3) Anemia Current Visit: Yes Status: Chronic (4) GERD (gastroesophageal reflux disease) Current Visit: Yes Status: Chronic Qualifiers: Esophagitis presence: without esophagitis Qualified Code(s): K21.9 - Gastro-esophageal reflux disease without esophagitis (5) Nicotine dependence Current Visit: Yes Status: Chronic Qualifiers: Nicotine product type: cigarettes Substance use status: in withdrawal Qualified Code(s): F17.213 - Nicotine dependence, cigarettes, with withdrawal (6) Bipolar disorder Current Visit: Yes Status: Suspected (7) Bipolar 1 disorder, manic, moderate Current Visit: No Status: Suspected - AMA Did Patient Leave Against Medical Advice: No
[2017-07-03] MEDS ORDERED: FLUoxetine HCL 10 MG CAPSULE (FP) PO SCH (10:00)
[2017-07-03] MEDS ORDERED: ARIPiprazole 10 MG TABLET PO SCH (10:00)
[2017-07-03] MEDS ORDERED: DOXEPIN HCL 50 MG CAPSULE PO SCH (10:00)
[2017-07-03 10:36] VITALS: BP 119/80; PULSE 70; TEMP 99.1
[2017-07-03] MEDS: RANITIDINE HCL 150 MG TABLET (FP) PO SCH (10:51)
[2017-07-03] MEDS: PRENATAL VITAMINS W/ FOLIC ACID TABLET (FP) PO SCH (10:51)
[2017-07-03] MEDS: NICOTINE 21 MG/24 HOURS TOPICAL PATCH TD SCH (10:52)
[2017-07-03] MEDS: LIDOCAINE 5% TOPICAL PATCH TP SCH (10:52)
== END 2017-07-03 12:40 | disposition home or self-care (01) | DRG 773 ==
LOC: YASAS 15:46 → Y6N 20:21
PROVIDERS: ADMIT Internal Medicine Addiction Medicine; ATTEND Internal Medicine Addiction Medicine
PROC: HZ2ZZZZ Detoxification Services for Substance Abuse Treatment (ICD-10-PCS; principal; 2017-06-27)
DX: F11.23 Opioid dependence with withdrawal (principal); F10.230 Alcohol dependence with withdrawal, uncomplicated; F14.20 Cocaine dependence, uncomplicated; F12.20 Cannabis dependence, uncomplicated; F17.213 Nicotine dependence, cigarettes, with withdrawal; F31.9 Bipolar disorder, unspecified; F31.89 Other bipolar disorder; K21.9 Gastro-esophageal reflux disease without esophagitis; D64.9 Anemia, unspecified; J45.22 Mild intermittent asthma with status asthmaticus; R00.0 Tachycardia, unspecified; E66.9 Obesity, unspecified; Z68.39 Body mass index [BMI] 39.0-39.9, adult; T50.995A Adverse effect of other drugs, medicaments and biological substances, initial encounter; Y92.239 Unspecified place in hospital as the place of occurrence of the external cause; Z91.5 Personal history of self-harm; Z59.0 Homelessness
CPT/HCPCS: 36415; 73630-TC-RT; 80053; 81003; 81015; 85027; 86593; 86803; 87389; 93005; 93010

== ENCOUNTER 2018-12-11 13:04 | Inpatient (IN) | payer OTHER ==
[2018-12-11 13:34] VITALS: BMI 32.4
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
[2018-12-11] MEDS ORDERED: MAGNESIUM HYDROX 2400MG/30ML ORAL SUSPENSION 30 ML CUP PO PRN (17:02)
[2018-12-11] MEDS ORDERED: BISMUTH SUBSALICYLATE 524 MG/30 ML UD PO PRN (17:02)
[2018-12-11] MEDS ORDERED: traZODone HCL 50 MG TABLET (FP) PO PRN (17:02)
[2018-12-11] MEDS ORDERED: MELATONIN 5 MG TABLETS PO PRN (17:02)
[2018-12-11] MEDS ORDERED: ACETAMINOPHEN 325 MG TABLET (FP) PO PRN ×2 (17:02)
[2018-12-11] MEDS ORDERED: MAG HYDROX/AL HYDROX/SIMETH 30 ML UNIT-DOSE CUP PO PRN (17:02)
[2018-12-11] MEDS ORDERED: IBUPROFEN 400 MG TABLET (FP) PO PRN (17:02)
[2018-12-11] MEDS ORDERED: MENTHOL/PHENOL 1 EACH UD MM PRN (17:02)
[2018-12-11] MEDS ORDERED: MAGNESIUM CITRATE 300 ML BOTTLE PO PRN (17:02)
[2018-12-11] MEDS ORDERED: METHOCARBAMOL 500 MG TABLET PO PRN (17:02)
[2018-12-11] MEDS ORDERED: ALBUTEROL SO4 0.083% IH SOL 2.5 MG/3 ML VIAL.NEB. NEB PRN (17:05)
[2018-12-11] MEDS: chlordiazePOXIDE HCL 10 MG CAPSULE PO PRN (18:40)
[2018-12-11] MEDS ORDERED: hydrOXYzine PAMOATE 25 MG CAPSULE (FP) PO PRN (20:24)
[2018-12-11] MEDS: THIAMINE HCL 100 MG TABLET (FP) PO SCH (22:08)
[2018-12-11] MEDS: chlordiazePOXIDE HCL 25 MG CAPSULE PO SCH (22:08)
[2018-12-11] MEDS ORDERED: METHADONE HCL 10 MG TABLET (FOR DETOX USE ONLY) PO ONE (23:00)
[2018-12-12] MEDS: chlordiazePOXIDE HCL 25 MG CAPSULE PO SCH ×2 (04:32→12:18)
[2018-12-12] MEDS: NICOTINE POLACRILEX 2 MG GUM BUC PRN ×2 (04:33→13:24)
[2018-12-12] MEDS ORDERED: METHADONE HCL 5 MG TABLET (FOR DETOX USE ONLY) PO ONE (10:00)
[2018-12-12] MEDS: PRENATAL VITAMINS W/ FOLIC ACID TABLET (FP) PO SCH (10:50)
[2018-12-12 10:57] LABS: HEMATOCRIT 28.9 % (32.4-45.2); HEMOGLOBIN 9.3 GM/dL (10.7-15.3); MCH 26.6 pg (25.7-33.7); MCHC 32.1 g/dl (32.0-36.0); MEAN CELL VOLUME 82.7 fl (80-96); MEAN PLT VOLUME 8.4 fl (7.5-11.1); PLATELET COUNT 391 K/MM3 (134-434); RDW 17.5 % (11.6-15.6)
[2018-12-12 11:06] LABS: ALBUMIN 3.2 g/dl (3.4-5.0); ALK PHOS 85 U/L (45-117); ANION GAP 6 MMOL/L (8-16); BILIRUBIN,TOTAL 0.4 mg/dL (0.2-1); BLOOD UREA NITROGEN 12 mg/dL (7-18); CALCIUM 8.6 mg/dL (8.5-10.1); CHLORIDE 106 mmol/L (98-107); CO2 27 mmol/L (21-32); GLUCOSE,RANDOM 110 mg/dL (74-106); POTASSIUM 4.1 mmol/L (3.5-5.1); SGOT/AST 13 U/L (15-37); SGPT/ALT 16 U/L (13-61); SODIUM 140 mmol/L (136-145); TOT PROT 7.4 g/dl (6.4-8.2)
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
--- NOTE | 2018-12-12 14:09 | EKG ---
Test Reason : Blood Pressure : / mmHG Vent. Rate : 083 BPM Atrial Rate : 083 BPM P-R Int : 152 ms QRS Dur : 088 ms QT Int : 384 ms P-R-T Axes : 044 056 045 degrees QTc Int : 451 ms NORMAL SINUS RHYTHM MINIMAL VOLTAGE CRITERIA FOR LVH, MAY BE NORMAL VARIANT WHEN COMPARED WITH ECG OF 27-JUN-2017 21:23, NO SIGNIFICANT CHANGE WAS FOUND Confirmed by LEXUS CHAPMAN MD ([id number]) on 12/12/2018 2:08:43 PM Referred By: Confirmed By:LEXUS CHAPMAN MD
--- NOTE | 2018-12-12 14:13 | PN ---
[facility] CIWA - CIWA Score Nausea/Vomitin-No Nausea/No Vomiting Muscle Tremors: 4-Moderate,w/Arms Extend Anxiety: 3 Agitation: 3 Paroxysmal Sweats: 2 Orientation: 0-Oriented Tacttile Disturbances: 0-None Auditory Disturbances: 0-None Visual Disturbances: 0-None Headache: 0-None Present CIWA-Ar Total Score: 12 [facility] COWS - Scale Resting Pulse: 1= NC 81-100 Sweatin=Flushed/Facial Moisture Restless Observation: 1= Difficult to Sit Still Pupil Size: 0= Normal to Room Light Bone or Joint Aches: 1= Mild Discomfort Runny Nose/ Eye Tearin= Nasal Congestion GI Upset > 30mins: 0= None Tremor Observation of Outstretched Hands: 1= Tremor [place], Not Seen Yawning Observation: 1= 1-2x During Session Anxiety or Irritability: 2=Irritable/Anxious Goose Flesh Skin: 0=Smooth Skin COWS Score: 10 [facility] Progress Note (SOAP) Subjective: sweats shakes interrupted sleep body aches Objective: 12/12/18 14:12 Vital Signs Temperature 97.9 F 12/12/18 13:34 Pulse Rate 123 H 12/12/18 13:34 Respiratory Rate 18 12/12/18 13:34 Blood Pressure 100/61 12/12/18 13:34 O2 Sat by Pulse Oximetry (%) Laboratory Tests 12/12/18 12/12/18 12/12/18 07:00 07:00 07:00 WBC 9.0 RBC 3.50 L Hgb 9.3 L Hct 28.9 L MCV 82.7 MCH 26.6 D MCHC 32.1 RDW 17.5 H Plt Count 391 D MPV 8.4 Sodium 140 Potassium 4.1 Chloride 106 Carbon Dioxide 27 Anion Gap 6 L BUN 12 Creatinine 1.0 Creat Clearance w eGFR > 60 Random Glucose 110 H Calcium 8.6 Total Bilirubin 0.4 AST 13 L ALT 16 Alkaline Phosphatase 85 Total Protein 7.4 Albumin 3.2 L HIV 1&2 Antibody Screen Negative HIV P24 Antigen Negative aaox3 ambulating no acute distress Assessment: 12/12/18 14:12 withdrawal sx Plan: continue detox increase fluids
[2018-12-12] MEDS: chlordiazePOXIDE HCL 10 MG CAPSULE PO PRN (17:59)
[2018-12-12] MEDS: FERROUS SO4 325 MG TABLET (FP) PO SCH (23:33)
[2018-12-12] MEDS: chlordiazePOXIDE 5 MG CAPSULE PO SCH (23:33)
[2018-12-12] MEDS: THIAMINE HCL 100 MG TABLET (FP) PO SCH (23:35)
[2018-12-12] MEDS: DOXEPIN HCL 50 MG CAPSULE PO SCH (23:35)
[2018-12-13] MEDS: chlordiazePOXIDE 5 MG CAPSULE PO SCH ×2 (05:30→13:31)
[2018-12-13] MEDS ORDERED: METHADONE HCL 10 MG TABLET (FOR DETOX USE ONLY) PO ONE (10:00)
[2018-12-13] MEDS: ARIPiprazole 10 MG TABLET PO SCH (10:40)
[2018-12-13] MEDS: PRENATAL VITAMINS W/ FOLIC ACID TABLET (FP) PO SCH (10:40)
[2018-12-13] MEDS: FERROUS SO4 325 MG TABLET (FP) PO SCH ×2 (10:41→22:22)
[2018-12-13] MEDS: FLUoxetine HCL 20 MG CAPSULE (FP) PO SCH (10:41)
--- NOTE | 2018-12-13 12:17 | PN ---
[facility] CIWA - CIWA Score Nausea/Vomitin-No Nausea/No Vomiting Muscle Tremors: 3 Anxiety: 3 Agitation: 3 Paroxysmal Sweats: 2 Orientation: 0-Oriented Tacttile Disturbances: 0-None Auditory Disturbances: 0-None Visual Disturbances: 0-None Headache: 0-None Present CIWA-Ar Total Score: 11 S COWS - Scale Resting Pulse: 1= [place] 81-100 Sweatin=Flushed/Facial Moisture Restless Observation: 1= Difficult to Sit Still Pupil Size: 0= Normal to Room Light Bone or Joint Aches: 1= Mild Discomfort Runny Nose/ Eye Tearin= Nasal Congestion GI Upset > 30mins: 0= None Tremor Observation of Outstretched Hands: 1= Tremor [place], Not Seen Yawning Observation: 1= 1-2x During Session Anxiety or Irritability: 1=Feels Anxious/Irritable Goose Flesh Skin: 0=Smooth Skin COWS Score: 9 [facility] Progress Note (SOAP) Subjective: sweats shakes interrupted sleep body aches Objective: 12/13/18 12:16 Vital Signs Temperature 98.4 F 12/13/18 11:35 Pulse Rate 96 H 12/13/18 11:35 Respiratory Rate 16 12/13/18 11:35 Blood Pressure 109/63 12/13/18 11:35 O2 Sat by Pulse Oximetry (%) Laboratory Tests 12/12/18 12/12/18 12/12/18 07:00 07:00 07:00 WBC 9.0 RBC 3.50 L Hgb 9.3 L Hct 28.9 L MCV 82.7 MCH 26.6 D MCHC 32.1 RDW 17.5 H Plt Count 391 D MPV 8.4 Sodium 140 Potassium 4.1 Chloride 106 Carbon Dioxide 27 Anion Gap 6 L BUN 12 Creatinine 1.0 Creat Clearance w eGFR > 60 Random Glucose 110 H Calcium 8.6 Total Bilirubin 0.4 AST 13 L ALT 16 Alkaline Phosphatase 85 Total Protein 7.4 Albumin 3.2 L HIV 1&2 Antibody Screen Negative HIV P24 Antigen Negative aaox3 ambulating no acute distress Assessment: 12/13/18 12:17 withdrawal sx Plan: continue detox increase fluids
[2018-12-13] MEDS ORDERED: chlordiazePOXIDE HCL 10 MG CAPSULE PO PRN (21:00)
[2018-12-13] MEDS: THIAMINE HCL 100 MG TABLET (FP) PO SCH (22:22)
[2018-12-13] MEDS: chlordiazePOXIDE HCL 10 MG CAPSULE PO SCH (22:22)
[2018-12-13] MEDS: DOXEPIN HCL 50 MG CAPSULE PO SCH (22:22)
[2018-12-14] MEDS: chlordiazePOXIDE HCL 10 MG CAPSULE PO SCH ×3 (05:33→22:16)
[2018-12-14] MEDS: NICOTINE POLACRILEX 2 MG GUM BUC PRN ×2 (05:34→22:18)
[2018-12-14] MEDS ORDERED: METHADONE HCL 5 MG TABLET (FOR DETOX USE ONLY) PO ONE (06:00)
[2018-12-14] MEDS: FERROUS SO4 325 MG TABLET (FP) PO SCH ×2 (10:43→22:16)
[2018-12-14] MEDS: PRENATAL VITAMINS W/ FOLIC ACID TABLET (FP) PO SCH (10:43)
[2018-12-14] MEDS: FLUoxetine HCL 20 MG CAPSULE (FP) PO SCH (10:43)
[2018-12-14] MEDS: ARIPiprazole 10 MG TABLET PO SCH (10:43)
--- NOTE | 2018-12-14 18:13 | PN ---
[facility] Progress Note (SOAP) Subjective: Body aches, interrupted sleep Objective: 12/14/18 18:12 Last Vital Signs Temp Pulse Resp BP Pulse Ox 98.2 F 107 H 18 103/58 L 12/14/18 14:21 12/14/18 14:21 12/14/18 14:21 12/14/18 14:21 Laboratory Tests 12/12/18 12/12/18 12/12/18 07:00 07:00 07:00 WBC 9.0 RBC 3.50 L Hgb 9.3 L Hct 28.9 L MCV 82.7 MCH 26.6 D MCHC 32.1 RDW 17.5 H Plt Count 391 D MPV 8.4 Sodium 140 Potassium 4.1 Chloride 106 Carbon Dioxide 27 Anion Gap 6 L BUN 12 Creatinine 1.0 Creat Clearance w eGFR > 60 Random Glucose 110 H Calcium 8.6 Total Bilirubin 0.4 AST 13 L ALT 16 Alkaline Phosphatase 85 Total Protein 7.4 Albumin 3.2 L RPR Titer Nonreactive HIV 1&2 Antibody Screen HIV P24 Antigen 12/12/18 07:00 WBC RBC Hgb Hct MCV MCH MCHC RDW Plt Count MPV Sodium Potassium Chloride Carbon Dioxide Anion Gap BUN Creatinine Creat Clearance w eGFR Random Glucose Calcium Total Bilirubin AST ALT Alkaline Phosphatase Total Protein Albumin RPR Titer HIV 1&2 Antibody Screen Negative HIV P24 Antigen Negative Labs reviewed Assessment: 12/14/18 18:13 Withdrawal symptoms Plan: Continue detox Encouraged PO water hydration
[2018-12-14] MEDS: THIAMINE HCL 100 MG TABLET (FP) PO SCH (22:16)
[2018-12-14] MEDS: DOXEPIN HCL 50 MG CAPSULE PO SCH (22:16)
--- NOTE | 2018-12-15 09:29 | DS ---
[facility] Detox Discharge Summary Admission Date: 12/11/18 Discharge Date: 12/15/18 - History Present History: Cannabis Dependence, Cocaine Dependence, Opioid Dependence, Pcp Dependence - Physical Exam Results Vital Signs: Vital Signs Temperature 98.2 F 12/15/18 06:00 Pulse Rate 93 H 12/15/18 06:00 Respiratory Rate 18 12/15/18 06:00 Blood Pressure 106/64 12/15/18 06:00 O2 Sat by Pulse Oximetry (%) - Treatment Hospital Course: Detox Protocol Followed, Detoxed Safely, Responded well, Discharged Condition Good, Rehab Referral Accepted - Medication Discharge Medications: Ambulatory Orders Aripiprazole [Abilify -] 20 mg PO DAILY 05/21/16 Naltrexone HCl [Revia -] 100 mg PO BID 10/16/16 Topiramate [Topamax -] 150 mg PO BID 10/16/16 Fluoxetine HCl [Prozac -] 40 mg PO DAILY #60 cap 06/28/17 Gabapentin [Neurontin -] 300 mg PO BID #60 cap 06/28/17 Topiramate [Topamax -] 100 mg PO BID #60 tablet MDD 200 06/28/17 Albuterol Sulfate Inhaler - [Ventolin HFA Inhaler -] 2 puff IH Q4H PRN #1 inhaler 07/03/17 Doxepin HCl [Sinequan -] 100 mg PO DAILY #30 cap 07/03/17 Ranitidine [Zantac -] 150 mg PO BID #60 tablet 07/03/17 - Diagnosis (1) Alcohol dependence with withdrawal Current Visit: Yes Status: Chronic Qualifiers: Complication of substance-induced condition: uncomplicated Qualified Code(s ): F10.230 - Alcohol dependence with withdrawal, uncomplicated (2) PCP (phencyclidine) abuse Current Visit: Yes Status: Chronic (3) Cocaine dependence Current Visit: Yes Status: Chronic Qualifiers: Substance use status: uncomplicated Qualified Code(s): F14.20 - Cocaine dependence, uncomplicated (4) Nicotine dependence Current Visit: Yes Status: Chronic Qualifiers: Nicotine product type: cigarettes Substance use status: uncomplicated Qualified Code(s): F17.210 - Nicotine dependence, cigarettes, uncomplicated (5) Opioid dependence with withdrawal Current Visit: Yes Status: Chronic (6) Schizoaffective disorder Current Visit: Yes Status: Chronic Qualifiers: Schizoaffective disorder type: bipolar Qualified Code(s): F25.0 - Schizoaffective disorder, bipolar type (7) Altered mental status Current Visit: No Status: Acute Qualifiers: Altered mental status type: somnolence Qualified Code(s): R40.0 - Somnolence (8) Low back pain Current Visit: No Status: Acute (9) Substance induced mood disorder Current Visit: No Status: Acute (10) Weight loss Current Visit: No Status: Acute (11) Anemia Current Visit: No Status: Chronic (12) Asthma Current Visit: Yes Status: Chronic Qualifiers: Asthma severity: mild Asthma complication type: with status asthmaticus (13) GERD (gastroesophageal reflux disease) Current Visit: Yes Status: Chronic Qualifiers: Esophagitis presence: without esophagitis Qualified Code(s): K21.9 - Gastro -esophageal reflux disease without esophagitis (14) Bipolar 1 disorder, manic, moderate Current Visit: No Status: Suspected (15) Bipolar disorder Current Visit: No Status: Suspected - AMA Did Patient Leave Against Medical Advice: No (pt referred to [facility] inpatient rehab)
[2018-12-15] MEDS: PRENATAL VITAMINS W/ FOLIC ACID TABLET (FP) PO SCH (10:33)
[2018-12-15] MEDS: FERROUS SO4 325 MG TABLET (FP) PO SCH (10:33)
[2018-12-15] MEDS: FLUoxetine HCL 20 MG CAPSULE (FP) PO SCH (10:33)
[2018-12-15] MEDS: ARIPiprazole 10 MG TABLET PO SCH (10:34)
[2018-12-15 15:42] VITALS: TEMP 98.4
[2018-12-15 15:46] VITALS: BP 106/62; PULSE 90
== END 2018-12-15 16:04 | disposition home or self-care (01) | DRG 773 ==
LOC: YASAS 13:04 → Y6N 17:38
PROVIDERS: ADMIT Surgery; ATTEND Surgery
PROC: HZ2ZZZZ Detoxification Services for Substance Abuse Treatment (ICD-10-PCS; principal; 2018-12-11)
DX: F11.23 Opioid dependence with withdrawal (principal); F10.230 Alcohol dependence with withdrawal, uncomplicated; F14.20 Cocaine dependence, uncomplicated; F16.10 Hallucinogen abuse, uncomplicated; F17.210 Nicotine dependence, cigarettes, uncomplicated; F25.0 Schizoaffective disorder, bipolar type; F31.89 Other bipolar disorder; R40.0 Somnolence; M54.5 Low back pain; K21.9 Gastro-esophageal reflux disease without esophagitis; J45.909 Unspecified asthma, uncomplicated; R01.1 Cardiac murmur, unspecified; Z91.5 Personal history of self-harm; Z59.0 Homelessness
CPT/HCPCS: 36415; 80053; 85027; 86593; 87389; 93005; 93010

== ENCOUNTER 2019-04-18 11:57 | Inpatient (IN) | payer OTHER ==
[2019-04-18 12:34] VITALS: BMI 27.1
--- NOTE | 2019-04-18 13:34 | HP ---
COWS - Scale Resting Pulse: 1= [place] 81-100 Sweatin= Chills/Flushing Restless Observation: 0= Sits Still Pupil Size: 0= Normal to Room Light Bone or Joint Aches: 1= Mild Discomfort Runny Nose/ Eye Tearin= Nasal Congestion GI Upset > 30mins: 1= Stomach Cramp Tremor Observation: 2= Slight Tremor Visible Yawning Observation: 0= None Anxiety or Irritability: 1=Feels Anxious/Irritable Goose Flesh Skin: 0=Smooth Skin COWS Score: 8 CIWA Score Nausea/Vomitin-Mild Nausea/No Vomiting Muscle Tremors: 3 Anxiety: 4-Mod. Anxious/Guarded Agitation: 1-Slight > Activity Paroxysmal Sweats: 1-Minimal Palms Moist Orientation: 1-Uncertain about Date Tacttile Disturbances: 1-Very Mild Itch/Numbness Auditory Disturbances: 1-Very Mild Visual Disturbances: 1-Very Mild Sensitivity Headache: 2-Mild CIWA-Ar Total Score: 16 - Admission Criteria OASAS Guidelines: Admission for Medically Managed Detox: Requires at least one of the followin. CIWA greater than 12 2. Seizures within the past 24 hours 3. Delirium tremens within the past 24 hours 4. Hallucinations within the past 24 hours 5. Acute intervention needed for co occurring medical disorder 6. Acute intervention needed for co occurring psychiatric disorder 7. Severe withdrawal that cannot be handled at a lower level of care (continued vomiting, continued diarrhea, abnormal vital signs) requiring intravenous medication and/or fluids 8. Patient presents the following: CIWA greater than 12 Admission Criteria Met: Admission criteria met Admission ROS S - HPI Chief Complaint: I want detox, I'm tired Allergies/Adverse Reactions: Allergies Allergy/AdvReac Type Severity Reaction Status Date / Time No Known Allergies Allergy Verified 04/18/19 12:23 History of Present Illness: 38 yo woman here fro detox from opiates, alcohol - one of several admissions for treatment. Last here 12/11/18. Today she comes here from [facility] - states she had swelling in her ankle and asthma attack - - ultrasound was negative and the swelling went down, she was also Rx prednisone and an inhaler, and told to go for detox. Denies seizures or black outs, states never on methadone program - did take suboxone last night because she was feeling withdrawal. States she has in the past been in a one year residential drug treatment program but relapsed shortly after leaving. Exam Limitations: No Limitations - Ebola screening Have you traveled outside of the country in the last 21 days: No (N) Have you had contact with anyone from an Ebola affected area: No Do you have a fever: No - Review of Systems Constitutional: Loss of Appetite, Changes in sleep, Weakness EENT: reports: Blurred Vision, Nose Congestion Respiratory: reports: Cough, SOB with Exertion Cardiac: reports: Chest Tightness GI: reports: Nausea, Poor Appetite, Poor Fluid Intake, Abdominal cramping : reports: Frequency Musculoskeletal: reports: No Symptoms Reported Integumentary: reports: No Symptoms Reported Neuro: reports: Headache, Tremors Endocrine: reports: No Symptoms Reported Hematology: reports: No Symptoms Reported Psychiatric: reports: Judgement Intact, Mood/Affect Appropiate, Anxious Other Systems: Reviewed and Negative Patient History - Patient Medical History Hx Anemia: No Hx Asthma: Yes (Pt is on Albulterol IH) Hx Chronic Obstructive Pulmonary Disease (COPD): No Hx Cancer: No Hx Cardiac Disorders: Yes (?Heart Murmur) Hx Congestive Heart Failure: No Hx Hypertension: No Hx Hypercholesterolemia: No Hx Pacemaker: No HX Cerebrovascular Accident: No Hx Seizures: No Hx Dementia: No Hx Diabetes: No Hx Gastrointestinal Disorders: No Hx Liver Disease: No Hx Genitourinary Disorders: No Hx Sexually Transmitted Disorders: No Hx Renal Disease (ESRD): No Hx Thyroid Disease: No Hx Human Immunodeficiency Virus (HIV): No (LAST 08/01) Hx Hepatitis C: No Hx Depression: Yes (hx hospitalizations, on meds, sees psych) Hx Suicide Attempt: Yes (at age 18 -'took bunch of pills') Hx Bipolar Disorder: Yes Hx Schizophrenia: Yes (schizoaffective - hears voices) - Patient Surgical History Past Surgical History: Yes Hx Neurologic Surgery: No Hx Cataract Extraction: No Hx Cardiac Surgery: No Hx Lung Surgery: No Hx Breast Surgery: No Hx Breast Biopsy: No Hx Abdominal Surgery: Yes (ectopic - removed left tube/[facility] 2011) Hx Appendectomy: No Hx Cholecystectomy: No Hx Genitourinary Surgery: No Hx Section: No Hx Orthopedic Surgery: Yes (REMOVAL OF GANGLION LEFT WRIST 09/21) Hx Hysterectomy: No Anesthesia Reaction: No - PPD History Previous Implant?: Yes Documented Results: Negative w/proof Implanted On Prior R Admission?: Yes Date: 12/13/18 Results: 0 MM PPD to be Administered?: No - Reproductive History Patient is a Female of Child Bearing Age (11 -55 yrs old): Yes Last Menstrual Period: 06/03/17 - Smoking Cessation Smoking history: Current every day smoker Have you smoked in the past 12 months: Yes Aproximately how many cigarettes per day: 10 Cigars Per Day: 0 Hx Chewing Tobacco Use: No Initiated information on smoking cessation: Yes 'Breaking Loose' booklet given: 04/18/19 (give on floor) - Substance & Tx. History Hx Alcohol Use: Yes Hx Substance Use: Yes Substance Use Type: Alcohol, Cocaine, Heroin Hx Substance Use Treatment: Yes (detox, rehab) - Substances abused Alcohol Substance route: Oral Frequency: Daily Amount used: 2-3 pints Vodka/day Age of first use: 22 Date of last use: 04/17/19 Heroin Substance route: Smoking Frequency: Daily Amount used: 2 bundles/day Age of first use: 37 Date of last use: 04/17/19 Crack Substance route: Smoking Frequency: Daily Amount used: $200/day Age of first use: 29 Date of last use: 04/17/19 Buprenorphine Substance route: Oral Frequency: 1-3 times last 30 days Amount used: 8mg Age of first use: 38 Date of last use: 04/18/19 (because I was feeling sick) Marijuana/Hashish Substance route: Smoking Frequency: 1-2 times per week Amount used: 2 puffs Age of first use: 18 Date of last use: 04/17/19 Family Disease History - Family Disease History Family Disease History: Diabetes: Grandparent, Other: Father (living, [place], little contact), Mother (living - Crohns, on dialysis), Brother (one - healthy, ? etoh, ? heroin), Sister (one - healthy), Son (two - ages 25 and 21) Admission Physical Exam S - Vital Signs Vital Signs: Vital Signs - 24 hr 04/18/19 12:27 Temperature 97.4 F L Pulse Rate 82 Respiratory 18 Rate Blood Pressure 117/78 - Physical General Appearance: Yes: Nourished, Appropriately Dressed, Moderate Distress, Tremorous, Irritable, Anxious HEENTM: Yes: EOMI, Hearing grossly Normal, Normocephalic, Normal Voice, Pharynx Normal, Nasal Congestion Respiratory: Yes: Wheezing Neck: Yes: No masses,lesions,Nodules Breast: Yes: Breast Exam Deferred Cardiology: Yes: Regular Rhythm, Regular Rate Abdominal: Yes: Soft Genitourinary: Yes: Frequency Back: Yes: Normal Inspection Musculoskeletal: Yes: full range of Motion, Gait Steady Extremities: Yes: Normal Capillary Refill, Normal Inspection, Normal Range of Motion Neurological: Yes: Alert, Normal Mood/Affect, Normal Response Integumentary: Yes: Normal Color, Dry, Warm Lymphatic: Yes: Within Normal Limits - Diagnostic (1) Opioid dependence with withdrawal Current Visit: No Status: Chronic (2) Alcohol dependence with withdrawal Current Visit: Yes Status: Chronic Qualifiers: Complication of substance-induced condition: uncomplicated Qualified Code(s ): F10.230 - Alcohol dependence with withdrawal, uncomplicated (3) Cocaine dependence Current Visit: Yes Status: Chronic Qualifiers: Substance use status: uncomplicated Qualified Code(s): F14.20 - Cocaine dependence, uncomplicated (4) Asthma Current Visit: Yes Status: Chronic Qualifiers: Asthma severity: moderate Asthma persistence: persistent Asthma complication type: with status asthmaticus Qualified Code(s): J45.42 - Moderate persistent asthma with status asthmaticus Comment: treated with albuterol nebulizer in [facility] (5) Nicotine dependence Current Visit: Yes Status: Chronic Qualifiers: Nicotine product type: cigarettes Substance use status: uncomplicated Qualified Code(s): F17.210 - Nicotine dependence, cigarettes, uncomplicated Cleared for Admission [facility] - Detox or Rehab S Level of Care: Medically Managed Detox Regimen/Protocol: Methadone/Librium Inpatient Rehab Admission - Rehab Decision to Admit Inpatient rehab admission?: No
[2019-04-18] MEDS ORDERED: cloNIDine HCL 0.1 MG TABLET PO PRN (13:51)
[2019-04-18] MEDS ORDERED: chlordiazePOXIDE HCL 25 MG CAPSULE PO PRN (13:51)
[2019-04-18] MEDS ORDERED: hydrOXYzine HCL 25 MG TABLET (FP) PO PRN (13:51)
[2019-04-18] MEDS ORDERED: MENTHOL/PHENOL 1 EACH UD MM PRN (13:51)
[2019-04-18] MEDS ORDERED: BISMUTH SUBSALICYLATE 524 MG/30 ML UD PO PRN (13:51)
[2019-04-18] MEDS ORDERED: MAGNESIUM CITRATE 300 ML BOTTLE PO PRN (13:51)
[2019-04-18] MEDS ORDERED: METHADONE HCL 10 MG TABLET (FOR DETOX USE ONLY) PO ONE (13:51)
[2019-04-18] MEDS ORDERED: ACETAMINOPHEN 325 MG TABLET (FP) PO PRN (13:51)
[2019-04-18] MEDS ORDERED: MELATONIN 5 MG TABLETS PO PRN (13:51)
[2019-04-18] MEDS ORDERED: MAGNESIUM HYDROX 2400MG/30ML ORAL SUSPENSION 30 ML CUP PO PRN (13:51)
[2019-04-18] MEDS ORDERED: MAG HYDROX/AL HYDROX/SIMETH 30 ML UNIT-DOSE CUP PO PRN (13:51)
[2019-04-18] MEDS ORDERED: chlordiazePOXIDE HCL 25 MG CAPSULE PO ONE (13:51)
[2019-04-18] MEDS ORDERED: ALBUTEROL SO4 2.5/IPRATROPIUM 0.5 INH SOL 3 ML VIAL.NEB. NEB PRN (13:53)
[2019-04-18] MEDS: predniSONE 20 MG TABLET (UD) PO SCH (17:55)
[2019-04-18] MEDS: chlordiazePOXIDE HCL 25 MG CAPSULE PO SCH ×2 (17:55→22:31)
[2019-04-18] MEDS: METHOCARBAMOL 500 MG TABLET PO PRN (17:59)
[2019-04-18] MEDS: THIAMINE HCL 100 MG TABLET (FP) PO SCH (22:31)
[2019-04-18] MEDS ORDERED: ALBUTEROL SO4 8 GM HFA INHALER IH ONE (23:15)
[2019-04-19] MEDS: ACETAMINOPHEN 325 MG TABLET (FP) PO PRN ×2 (01:55→10:43)
[2019-04-19] MEDS: ALBUTEROL SO4 8 GM HFA INHALER IH PRN ×4 (01:56→19:56)
[2019-04-19] MEDS: chlordiazePOXIDE HCL 25 MG CAPSULE PO SCH ×4 (05:48→22:22)
[2019-04-19] MEDS ORDERED: METHADONE HCL 10 MG TABLET (FOR DETOX USE ONLY) ONE (08:17)
[2019-04-19] MEDS ORDERED: METHADONE HCL 5 MG TABLET (FOR DETOX USE ONLY) ONE (08:18)
[2019-04-19] MEDS ORDERED: METHADONE (DETOX) 20 MG, METHADONE (DETOX) 5 MG PO ONE (10:00)
[2019-04-19 10:18] LABS: ALBUMIN 2.9 g/dl (3.4-5.0); BILIRUBIN,TOTAL 0.2 mg/dL (0.2-1); CALCIUM 8.6 mg/dL (8.5-10.1); CREATININE 0.8 mg/dL (0.55-1.3); POTASSIUM 3.9 mmol/L (3.5-5.1); TOT PROT 6.6 g/dl (6.4-8.2)
[2019-04-19 10:29] LABS: HEMATOCRIT 26.2 % (32.4-45.2); HEMOGLOBIN 8.2 GM/dL (10.7-15.3); MCH 23.9 pg (25.7-33.7); MCHC 31.5 g/dl (32.0-36.0); MEAN CELL VOLUME 75.8 fl (80-96); MEAN PLT VOLUME 8.6 fl (7.5-11.1); RBC 3.45 M/mm3 (3.60-5.2); RDW 17.9 % (11.6-15.6); WHITE BLOOD COUNT 10.2 K/mm3 (4.0-10.0)
[2019-04-19] MEDS: PRENATAL VITAMINS W/ FOLIC ACID TABLET (FP) PO SCH (10:40)
[2019-04-19] MEDS: predniSONE 20 MG TABLET (UD) PO SCH (10:40)
[2019-04-19] MEDS: METHOCARBAMOL 500 MG TABLET PO PRN (10:43)
[2019-04-19 10:45] LABS: PLATELET COUNT 314 K/MM3 (134-434)
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
--- NOTE | 2019-04-19 11:42 | PN ---
S CIWA - CIWA Score Nausea/Vomitin-Mild Nausea/No Vomiting Muscle Tremors: 3 Anxiety: 3 Agitation: 2 Paroxysmal Sweats: 1-Minimal Palms Moist Orientation: 0-Oriented Tacttile Disturbances: 1-Very Mild Itch/Numbness Auditory Disturbances: 0-None Visual Disturbances: 0-None Headache: 0-None Present CIWA-Ar Total Score: 11 BHS COWS - Scale Resting Pulse: 1= [place] 81-100 Sweatin= Chills/Flushing Restless Observation: 0= Sits Still Pupil Size: 0= Normal to Room Light Bone or Joint Aches: 1= Mild Discomfort Runny Nose/ Eye Tearin= Nasal Congestion GI Upset > 30mins: 2= Nausea/Diarrhea Tremor Observation of Outstretched Hands: 1= Tremor [place], Not Seen Yawning Observation: 0= None Anxiety or Irritability: 1=Feels Anxious/Irritable Goose Flesh Skin: 0=Smooth Skin COWS Score: 8 S Progress Note (SOAP) Subjective: 38 yeas old male female admitted on 04/18/19 for alcohol and opiate withdrawal sx medical history of asthma and gerd taking prednison for asthma exacerbation history of gerd begn zantac hold motrin Objective: 04/19/19 11:44 Vital Signs Temperature 98.9 F 04/19/19 09:24 Pulse Rate 99 H 04/19/19 09:24 Respiratory Rate 20 04/19/19 09:24 Blood Pressure 109/66 04/19/19 09:24 O2 Sat by Pulse Oximetry (%) Laboratory lab note Laboratory Last Values WBC 10.2 K/mm3 (4.0-10.0) H 04/19/19 07:50 RBC 3.45 M/mm3 (3.60-5.2) L 04/19/19 07:50 Hgb 8.2 GM/dL (10.7-15.3) L 04/19/19 07:50 Hct 26.2 % (32.4-45.2) L 04/19/19 07:50 MCV 75.8 fl (80-96) L 04/19/19 07:50 MCH 23.9 pg (25.7-33.7) L D 04/19/19 07:50 MCHC 31.5 g/dl (32.0-36.0) L 04/19/19 07:50 RDW 17.9 % (11.6-15.6) H 04/19/19 07:50 Plt Count 314 K/MM3 (134-434) 04/19/19 07:50 MPV 8.6 fl (7.5-11.1) 04/19/19 07:50 Sodium 140 mmol/L (136-145) 04/19/19 07:50 Potassium 3.9 mmol/L (3.5-5.1) 04/19/19 07:50 Chloride 109 mmol/L (98-107) H 04/19/19 07:50 Carbon Dioxide 27 mmol/L (21-32) 04/19/19 07:50 Anion Gap 4 MMOL/L (8-16) L 04/19/19 07:50 BUN 10.0 mg/dL (7-18) 04/19/19 07:50 Creatinine 0.8 mg/dL (0.55-1.3) 04/19/19 07:50 Est GFR (CKD-EPI)AfAm 106.88 04/19/19 07:50 Est GFR (CKD-EPI)NonAf 92.22 04/19/19 07:50 Random Glucose 101 mg/dL (74-106) 04/19/19 07:50 Calcium 8.6 mg/dL (8.5-10.1) 04/19/19 07:50 Total Bilirubin 0.2 mg/dL (0.2-1) 04/19/19 07:50 AST 10 U/L (15-37) L 04/19/19 07:50 ALT 14 U/L (13-61) 04/19/19 07:50 Alkaline Phosphatase 74 U/L (45-117) 04/19/19 07:50 Total Protein 6.6 g/dl (6.4-8.2) 04/19/19 07:50 Albumin 2.9 g/dl (3.4-5.0) L 04/19/19 07:50 POC Urine HCG, Qual Negative 04/18/19 13:45 lab noted low hgb begin iron supplement Assessment: 04/19/19 11:46 alcohol and opiate withdrawal sx Plan: continue alcohol and opiate detox
[2019-04-19] MEDS: RANITIDINE HCL 150 MG TABLET (FP) PO SCH ×2 (12:09→22:22)
[2019-04-19] MEDS: FERROUS SO4 325 MG TABLET (FP) PO SCH (12:11)
[2019-04-19] MEDS: ARIPiprazole 10 MG TABLET PO SCH (12:12)
[2019-04-19] MEDS: FLUoxetine HCL 20 MG CAPSULE (FP) PO SCH (12:15)
[2019-04-19] MEDS: THIAMINE HCL 100 MG TABLET (FP) PO SCH (22:22)
[2019-04-20] MEDS: chlordiazePOXIDE HCL 25 MG CAPSULE PO SCH ×4 (05:47→22:13)
[2019-04-20] MEDS: ALBUTEROL SO4 8 GM HFA INHALER IH PRN (05:48)
[2019-04-20] MEDS: FERROUS SO4 325 MG TABLET (FP) PO SCH (08:21)
[2019-04-20] MEDS ORDERED: METHADONE HCL 10 MG TABLET (FOR DETOX USE ONLY) PO ONE (10:00)
--- NOTE | 2019-04-20 10:33 | PN ---
[facility] CIWA - CIWA Score Nausea/Vomitin-Mild Nausea/No Vomiting Muscle Tremors: 3 Anxiety: 2 Agitation: 2 Paroxysmal Sweats: 1-Minimal Palms Moist Orientation: 0-Oriented Tacttile Disturbances: 1-Very Mild Itch/Numbness Auditory Disturbances: 0-None Visual Disturbances: 0-None Headache: 0-None Present CIWA-Ar Total Score: 10 BHS COWS - Scale Resting Pulse: 1= [place] 81-100 Sweatin= Chills/Flushing Restless Observation: 0= Sits Still Pupil Size: 0= Normal to Room Light Bone or Joint Aches: 1= Mild Discomfort Runny Nose/ Eye Tearin= Nasal Congestion GI Upset > 30mins: 1= Stomach Cramp Tremor Observation of Outstretched Hands: 1= Tremor [place], Not Seen Yawning Observation: 1= 1-2x During Session Anxiety or Irritability: 1=Feels Anxious/Irritable Goose Flesh Skin: 0=Smooth Skin COWS Score: 8 S Progress Note (SOAP) Subjective: doing well with librium and methadone detox regimen managed asthma and gerd well resting in bed encourage to discuss aftercare patient prefers to go [facility] Objective: 04/20/19 10:36 Vital Signs Temperature 97.4 F L 04/20/19 09:05 Pulse Rate 88 04/20/19 09:05 Respiratory Rate 16 04/20/19 09:05 Blood Pressure 97/62 04/20/19 09:05 O2 Sat by Pulse Oximetry (%) Laboratory Last Values WBC 10.2 K/mm3 (4.0-10.0) H 04/19/19 07:50 RBC 3.45 M/mm3 (3.60-5.2) L 04/19/19 07:50 Hgb 8.2 GM/dL (10.7-15.3) L 04/19/19 07:50 Hct 26.2 % (32.4-45.2) L 04/19/19 07:50 MCV 75.8 fl (80-96) L 04/19/19 07:50 MCH 23.9 pg (25.7-33.7) L D 04/19/19 07:50 MCHC 31.5 g/dl (32.0-36.0) L 04/19/19 07:50 RDW 17.9 % (11.6-15.6) H 04/19/19 07:50 Plt Count 314 K/MM3 (134-434) 04/19/19 07:50 MPV 8.6 fl (7.5-11.1) 04/19/19 07:50 Sodium 140 mmol/L (136-145) 04/19/19 07:50 Potassium 3.9 mmol/L (3.5-5.1) 04/19/19 07:50 Chloride 109 mmol/L (98-107) H 04/19/19 07:50 Carbon Dioxide 27 mmol/L (21-32) 04/19/19 07:50 Anion Gap 4 MMOL/L (8-16) L 04/19/19 07:50 BUN 10.0 mg/dL (7-18) 04/19/19 07:50 Creatinine 0.8 mg/dL (0.55-1.3) 04/19/19 07:50 Est GFR (CKD-EPI)AfAm 106.88 04/19/19 07:50 Est GFR (CKD-EPI)NonAf 92.22 04/19/19 07:50 Random Glucose 101 mg/dL (74-106) 04/19/19 07:50 Calcium 8.6 mg/dL (8.5-10.1) 04/19/19 07:50 Total Bilirubin 0.2 mg/dL (0.2-1) 04/19/19 07:50 AST 10 U/L (15-37) L 04/19/19 07:50 ALT 14 U/L (13-61) 04/19/19 07:50 Alkaline Phosphatase 74 U/L (45-117) 04/19/19 07:50 Total Protein 6.6 g/dl (6.4-8.2) 04/19/19 07:50 Albumin 2.9 g/dl (3.4-5.0) L 04/19/19 07:50 POC Urine HCG, Qual Negative 04/18/19 13:45 RPR Titer Nonreactive (NONREACTIVE) 04/19/19 07:50 lab noted Assessment: 04/20/19 10:37 alcohol and opiate withdrawal sx Plan: continue alcohol and opiate detox
[2019-04-20] MEDS: predniSONE 20 MG TABLET (UD) PO SCH (10:58)
[2019-04-20] MEDS: RANITIDINE HCL 150 MG TABLET (FP) PO SCH ×2 (10:59→22:13)
[2019-04-20] MEDS: PRENATAL VITAMINS W/ FOLIC ACID TABLET (FP) PO SCH (10:59)
[2019-04-20] MEDS: ARIPiprazole 10 MG TABLET PO SCH (11:00)
[2019-04-20] MEDS: FLUoxetine HCL 20 MG CAPSULE (FP) PO SCH (11:06)
[2019-04-20] MEDS: NICOTINE POLACRILEX 4 MG GUM BUC PRN (17:26)
[2019-04-20] MEDS: THIAMINE HCL 100 MG TABLET (FP) PO SCH (22:13)
[2019-04-21] MEDS ORDERED: chlordiazePOXIDE HCL 10 MG CAPSULE PO PRN
[2019-04-21] MEDS: chlordiazePOXIDE HCL 10 MG CAPSULE PO SCH ×4 (07:03→22:13)
[2019-04-21] MEDS: FERROUS SO4 325 MG TABLET (FP) PO SCH (07:03)
[2019-04-21] MEDS ORDERED: METHADONE HCL 10 MG TABLET (FOR DETOX USE ONLY) ONE (08:25)
[2019-04-21] MEDS ORDERED: METHADONE HCL 5 MG TABLET (FOR DETOX USE ONLY) ONE (08:26)
[2019-04-21] MEDS ORDERED: METHADONE (DETOX) 10 MG, METHADONE (DETOX) 5 MG PO ONE (10:00)
[2019-04-21] MEDS: ARIPiprazole 10 MG TABLET PO SCH (10:30)
[2019-04-21] MEDS: RANITIDINE HCL 150 MG TABLET (FP) PO SCH ×2 (10:30→22:13)
[2019-04-21] MEDS: predniSONE 20 MG TABLET (UD) PO SCH (10:30)
[2019-04-21] MEDS: PRENATAL VITAMINS W/ FOLIC ACID TABLET (FP) PO SCH (10:30)
[2019-04-21] MEDS: FLUoxetine HCL 20 MG CAPSULE (FP) PO SCH (10:30)
--- NOTE | 2019-04-21 15:06 | PN ---
[facility] CIWA - CIWA Score Nausea/Vomitin-No Nausea/No Vomiting Muscle Tremors: 2 Anxiety: 1-Mildly Anxious Agitation: 2 Paroxysmal Sweats: No Perspiration Orientation: 0-Oriented Tacttile Disturbances: 0-None Auditory Disturbances: 0-None Visual Disturbances: 0-None Headache: 0-None Present CIWA-Ar Total Score: 5 BHS COWS - Scale Resting Pulse: 0= [place] 80 or Below Sweatin= Chills/Flushing Restless Observation: 0= Sits Still Pupil Size: 0= Normal to Room Light Bone or Joint Aches: 1= Mild Discomfort Runny Nose/ Eye Tearin= None GI Upset > 30mins: 1= Stomach Cramp Tremor Observation of Outstretched Hands: 1= Tremor [place], Not Seen Yawning Observation: 0= None Anxiety or Irritability: 1=Feels Anxious/Irritable Goose Flesh Skin: 0=Smooth Skin COWS Score: 5 S Progress Note (SOAP) Subjective: feeling more energetic today discuss aftercare with staff that prefers to go [facility] less tremor today doing well with the librium and methadone detox regimen Objective: 04/21/19 15:08 Vital Signs Temperature 97.5 F L 04/21/19 13:35 Pulse Rate 68 04/21/19 13:35 Respiratory Rate 16 04/21/19 13:35 Blood Pressure 108/71 04/21/19 13:35 O2 Sat by Pulse Oximetry (%) Laboratory Last Values WBC 10.2 K/mm3 (4.0-10.0) H 04/19/19 07:50 RBC 3.45 M/mm3 (3.60-5.2) L 04/19/19 07:50 Hgb 8.2 GM/dL (10.7-15.3) L 04/19/19 07:50 Hct 26.2 % (32.4-45.2) L 04/19/19 07:50 MCV 75.8 fl (80-96) L 04/19/19 07:50 MCH 23.9 pg (25.7-33.7) L D 04/19/19 07:50 MCHC 31.5 g/dl (32.0-36.0) L 04/19/19 07:50 RDW 17.9 % (11.6-15.6) H 04/19/19 07:50 Plt Count 314 K/MM3 (134-434) 04/19/19 07:50 MPV 8.6 fl (7.5-11.1) 04/19/19 07:50 Sodium 140 mmol/L (136-145) 04/19/19 07:50 Potassium 3.9 mmol/L (3.5-5.1) 04/19/19 07:50 Chloride 109 mmol/L (98-107) H 04/19/19 07:50 Carbon Dioxide 27 mmol/L (21-32) 04/19/19 07:50 Anion Gap 4 MMOL/L (8-16) L 04/19/19 07:50 BUN 10.0 mg/dL (7-18) 04/19/19 07:50 Creatinine 0.8 mg/dL (0.55-1.3) 04/19/19 07:50 Est GFR (CKD-EPI)AfAm 106.88 04/19/19 07:50 Est GFR (CKD-EPI)NonAf 92.22 04/19/19 07:50 Random Glucose 101 mg/dL (74-106) 04/19/19 07:50 Calcium 8.6 mg/dL (8.5-10.1) 04/19/19 07:50 Total Bilirubin 0.2 mg/dL (0.2-1) 04/19/19 07:50 AST 10 U/L (15-37) L 04/19/19 07:50 ALT 14 U/L (13-61) 04/19/19 07:50 Alkaline Phosphatase 74 U/L (45-117) 04/19/19 07:50 Total Protein 6.6 g/dl (6.4-8.2) 04/19/19 07:50 Albumin 2.9 g/dl (3.4-5.0) L 04/19/19 07:50 POC Urine HCG, Qual Negative 04/18/19 13:45 RPR Titer Nonreactive (NONREACTIVE) 04/19/19 07:50 lab noted Assessment: 04/21/19 15:08 alcohol and opiate withdrawal sx Plan: continue alcohol and opiate detox
[2019-04-21] MEDS: THIAMINE HCL 100 MG TABLET (FP) PO SCH (22:13)
[2019-04-22] MEDS: ALBUTEROL SO4 8 GM HFA INHALER IH PRN (06:00)
[2019-04-22] MEDS: chlordiazePOXIDE HCL 10 MG CAPSULE PO SCH ×2 (06:49→17:44)
[2019-04-22] MEDS: FERROUS SO4 325 MG TABLET (FP) PO SCH (07:32)
[2019-04-22] MEDS ORDERED: METHADONE HCL 10 MG TABLET (FOR DETOX USE ONLY) PO ONE (10:00)
[2019-04-22] MEDS: ARIPiprazole 10 MG TABLET PO SCH (10:45)
[2019-04-22] MEDS: predniSONE 20 MG TABLET (UD) PO SCH (10:45)
[2019-04-22] MEDS: PRENATAL VITAMINS W/ FOLIC ACID TABLET (FP) PO SCH (10:45)
[2019-04-22] MEDS: RANITIDINE HCL 150 MG TABLET (FP) PO SCH ×2 (10:45→22:32)
[2019-04-22] MEDS: FLUoxetine HCL 20 MG CAPSULE (FP) PO SCH (10:45)
[2019-04-22] MEDS: NICOTINE POLACRILEX 4 MG GUM BUC PRN (10:47)
--- NOTE | 2019-04-22 15:11 | PN ---
[facility] CIWA - CIWA Score Nausea/Vomitin-No Nausea/No Vomiting Muscle Tremors: 1-None Visible, but [place] Anxiety: 1-Mildly Anxious Agitation: 1-Slight > Activity Paroxysmal Sweats: No Perspiration Orientation: 0-Oriented Tacttile Disturbances: 0-None Auditory Disturbances: 0-None Visual Disturbances: 0-None Headache: 0-None Present CIWA-Ar Total Score: 3 S COWS - Scale Resting Pulse: 0= [place] 80 or Below Sweatin= No chills or Flushing Restless Observation: 0= Sits Still Pupil Size: 0= Normal to Room Light Bone or Joint Aches: 1= Mild Discomfort Runny Nose/ Eye Tearin= None GI Upset > 30mins: 0= None Tremor Observation of Outstretched Hands: 1= Tremor [place], Not Seen Yawning Observation: 0= None Anxiety or Irritability: 1=Feels Anxious/Irritable Goose Flesh Skin: 0=Smooth Skin COWS Score: 3 S Progress Note (SOAP) Subjective: feeling better today less tremor mild body aches doing well with asthma self management no shortness of breath clear lung bilaterally Objective: 04/22/19 15:12 Vital Signs Temperature 98.7 F 04/22/19 13:22 Pulse Rate 68 04/22/19 13:22 Respiratory Rate 18 04/22/19 13:22 Blood Pressure 95/52 L 04/22/19 13:22 O2 Sat by Pulse Oximetry (%) Laboratory Last Values WBC 10.2 K/mm3 (4.0-10.0) H 04/19/19 07:50 RBC 3.45 M/mm3 (3.60-5.2) L 04/19/19 07:50 Hgb 8.2 GM/dL (10.7-15.3) L 04/19/19 07:50 Hct 26.2 % (32.4-45.2) L 04/19/19 07:50 MCV 75.8 fl (80-96) L 04/19/19 07:50 MCH 23.9 pg (25.7-33.7) L D 04/19/19 07:50 MCHC 31.5 g/dl (32.0-36.0) L 04/19/19 07:50 RDW 17.9 % (11.6-15.6) H 04/19/19 07:50 Plt Count 314 K/MM3 (134-434) 04/19/19 07:50 MPV 8.6 fl (7.5-11.1) 04/19/19 07:50 Sodium 140 mmol/L (136-145) 04/19/19 07:50 Potassium 3.9 mmol/L (3.5-5.1) 04/19/19 07:50 Chloride 109 mmol/L (98-107) H 04/19/19 07:50 Carbon Dioxide 27 mmol/L (21-32) 04/19/19 07:50 Anion Gap 4 MMOL/L (8-16) L 04/19/19 07:50 BUN 10.0 mg/dL (7-18) 04/19/19 07:50 Creatinine 0.8 mg/dL (0.55-1.3) 04/19/19 07:50 Est GFR (CKD-EPI)AfAm 106.88 04/19/19 07:50 Est GFR (CKD-EPI)NonAf 92.22 04/19/19 07:50 Random Glucose 101 mg/dL (74-106) 04/19/19 07:50 Calcium 8.6 mg/dL (8.5-10.1) 04/19/19 07:50 Total Bilirubin 0.2 mg/dL (0.2-1) 04/19/19 07:50 AST 10 U/L (15-37) L 04/19/19 07:50 ALT 14 U/L (13-61) 04/19/19 07:50 Alkaline Phosphatase 74 U/L (45-117) 04/19/19 07:50 Total Protein 6.6 g/dl (6.4-8.2) 04/19/19 07:50 Albumin 2.9 g/dl (3.4-5.0) L 04/19/19 07:50 POC Urine HCG, Qual Negative 04/18/19 13:45 RPR Titer Nonreactive (NONREACTIVE) 04/19/19 07:50 lab noted Assessment: 04/22/19 15:12 alcohol and opiate withdrawal sx Plan: continue alcohol and opiate detox
[2019-04-22] MEDS: METHOCARBAMOL 500 MG TABLET PO PRN (17:47)
[2019-04-22] MEDS: THIAMINE HCL 100 MG TABLET (FP) PO SCH (22:32)
[2019-04-23] MEDS ORDERED: chlordiazePOXIDE HCL 10 MG CAPSULE PO ONE (05:00)
[2019-04-23] MEDS: ALBUTEROL SO4 8 GM HFA INHALER IH PRN (05:57)
[2019-04-23] MEDS ORDERED: METHADONE HCL 5 MG TABLET (FOR DETOX USE ONLY) PO ONE (06:00)
[2019-04-23] MEDS: FERROUS SO4 325 MG TABLET (FP) PO SCH (08:30)
[2019-04-23 09:17] VITALS: BP 92/51; PULSE 63; TEMP 97.5
[2019-04-23] MEDS: RANITIDINE HCL 150 MG TABLET (FP) PO SCH (10:56)
[2019-04-23] MEDS: PRENATAL VITAMINS W/ FOLIC ACID TABLET (FP) PO SCH (10:56)
[2019-04-23] MEDS: ARIPiprazole 10 MG TABLET PO SCH (10:56)
[2019-04-23] MEDS: FLUoxetine HCL 20 MG CAPSULE (FP) PO SCH (10:56)
[2019-04-23] MEDS: predniSONE 20 MG TABLET (UD) PO SCH (10:56)
--- NOTE | 2019-04-23 11:16 | DS ---
[facility] Detox Discharge Summary Admission Date: 04/18/19 Discharge Date: 04/23/19 - History Present History: Alcohol Dependence, Opioid Dependence Additional Comments: 38 years old female admitted on 04/20/19 for alcohol and opiate withdrawal sx management treated with librium and methadone detox protocol doing well throughout the detox stay no complication voice satisfaction medical history of asthma anemia gerd nicotine and substance induced disorder treated with ventolin prednison nicotin gum zantac and iron supplement Pertinent Past History: asthma anemia gerd - Physical Exam Results Vital Signs: Vital Signs Temperature 97.5 F L 04/23/19 09:16 Pulse Rate 63 04/23/19 09:16 Respiratory Rate 18 04/23/19 09:16 Blood Pressure 92/51 L 04/23/19 09:16 O2 Sat by Pulse Oximetry (%) Pertinent Admission Physical Exam Findings: alcohol and opiate withdrawal sx Laboratory Last Values WBC 10.2 K/mm3 (4.0-10.0) H 04/19/19 07:50 RBC 3.45 M/mm3 (3.60-5.2) L 04/19/19 07:50 Hgb 8.2 GM/dL (10.7-15.3) L 04/19/19 07:50 Hct 26.2 % (32.4-45.2) L 04/19/19 07:50 MCV 75.8 fl (80-96) L 04/19/19 07:50 MCH 23.9 pg (25.7-33.7) L D 04/19/19 07:50 MCHC 31.5 g/dl (32.0-36.0) L 04/19/19 07:50 RDW 17.9 % (11.6-15.6) H 04/19/19 07:50 Plt Count 314 K/MM3 (134-434) 04/19/19 07:50 MPV 8.6 fl (7.5-11.1) 04/19/19 07:50 Sodium 140 mmol/L (136-145) 04/19/19 07:50 Potassium 3.9 mmol/L (3.5-5.1) 04/19/19 07:50 Chloride 109 mmol/L (98-107) H 04/19/19 07:50 Carbon Dioxide 27 mmol/L (21-32) 04/19/19 07:50 Anion Gap 4 MMOL/L (8-16) L 04/19/19 07:50 BUN 10.0 mg/dL (7-18) 04/19/19 07:50 Creatinine 0.8 mg/dL (0.55-1.3) 04/19/19 07:50 Est GFR (CKD-EPI)AfAm 106.88 04/19/19 07:50 Est GFR (CKD-EPI)NonAf 92.22 04/19/19 07:50 Random Glucose 101 mg/dL (74-106) 04/19/19 07:50 Calcium 8.6 mg/dL (8.5-10.1) 04/19/19 07:50 Total Bilirubin 0.2 mg/dL (0.2-1) 04/19/19 07:50 AST 10 U/L (15-37) L 04/19/19 07:50 ALT 14 U/L (13-61) 04/19/19 07:50 Alkaline Phosphatase 74 U/L (45-117) 04/19/19 07:50 Total Protein 6.6 g/dl (6.4-8.2) 04/19/19 07:50 Albumin 2.9 g/dl (3.4-5.0) L 04/19/19 07:50 POC Urine HCG, Qual Negative 04/18/19 13:45 RPR Titer Nonreactive (NONREACTIVE) 04/19/19 07:50 lab noted - Treatment Hospital Course: Detox Protocol Followed, Detoxed Safely, Responded well, Discharged Condition Good, Rehab Referral Accepted Patient has Accepted a Rehab Referral to: [facility] - Medication Discharge Medications: Ambulatory Orders Aripiprazole [Abilify -] 20 mg PO DAILY 05/21/16 Fluoxetine HCl [Prozac -] 40 mg PO DAILY #60 cap 06/28/17 Gabapentin [Neurontin -] 300 mg PO BID #60 cap 06/28/17 Albuterol Sulfate Inhaler - [Ventolin HFA Inhaler -] 2 puff IH Q4H PRN #1 inhaler 07/03/17 Doxepin HCl [[place] -] 100 mg PO DAILY #30 cap 07/03/17 Ranitidine [Zantac -] 150 mg PO BID #60 tablet 07/03/17 Albuterol Sulfate Inhaler - [Ventolin HFA Inhaler -] 0 puff IH Q4H PRN #1 inhaler 04/22/19 - Diagnosis (1) Alcohol dependence with withdrawal Current Visit: Yes Status: Acute Qualifiers: Complication of substance-induced condition: uncomplicated Qualified Code(s ): F10.230 - Alcohol dependence with withdrawal, uncomplicated (2) Substance induced mood disorder Current Visit: Yes Status: Suspected (3) Asthma Current Visit: Yes Status: Chronic Qualifiers: Asthma severity: moderate Asthma persistence: persistent Asthma complication type: with status asthmaticus Qualified Code(s): J45.42 - Moderate persistent asthma with status asthmaticus (4) Opioid dependence with withdrawal Current Visit: No Status: Acute (5) Anemia Current Visit: Yes Status: Chronic Qualifiers: Anemia type: iron deficiency Iron deficiency anemia type: unspecified iron deficiency Qualified Code(s): D50.9 - Iron deficiency anemia, unspecified (6) GERD (gastroesophageal reflux disease) Current Visit: Yes Status: Chronic Qualifiers: Esophagitis presence: without esophagitis Qualified Code(s): K21.9 - Gastro -esophageal reflux disease without esophagitis - AMA Did Patient Leave Against Medical Advice: No
[2019-04-23] MEDS: NICOTINE POLACRILEX 4 MG GUM BUC PRN (12:48)
== END 2019-04-23 12:55 | disposition other institution (70) | DRG 773 ==
LOC: YASAS 11:57 → Y3N 16:18
PROVIDERS: ADMIT Surgery; ATTEND Surgery
PROC: HZ2ZZZZ Detoxification Services for Substance Abuse Treatment (ICD-10-PCS; principal; 2019-04-18)
DX: F10.20 Alcohol dependence, uncomplicated (principal); F11.23 Opioid dependence with withdrawal; F14.20 Cocaine dependence, uncomplicated; F17.210 Nicotine dependence, cigarettes, uncomplicated; F25.0 Schizoaffective disorder, bipolar type; F19.24 Other psychoactive substance dependence with psychoactive substance-induced mood disorder; D50.9 Iron deficiency anemia, unspecified; J45.42 Moderate persistent asthma with status asthmaticus; K21.9 Gastro-esophageal reflux disease without esophagitis; M54.5 Low back pain; Z59.0 Homelessness
CPT/HCPCS: 36415; 80053; 81025; 85027; 86593

== ENCOUNTER 2019-04-23 13:00 | Inpatient (IN) | payer OTHER ==
--- NOTE | 2019-04-23 11:24 | HP ---
[facility] Rehab Assess/Revision - Admission History Admitted to Rehab from: [facility] Date of Admission to Rehab: 04/23/19 - Findings Detox History & Physical reviewed: Yes Concur with findings: Yes Comments/Additional Findings: transferred from detox to rehab admission as per protocol Inpatient Rehab Admission - Rehab Decision to Admit Inpatient rehab admission?: Yes - Initial Determination Are CD services needed?: Yes Free of communicable disease: Yes Not in need of hospitalization: Yes - Rehab Admission Criteria Previous failed treatment: Yes Poor recovery environment: Yes Comorbidities: Yes Lacks judgement: No Patient is meeting Inpatient Rehab admission criteria:: Yes
[~2019-04-23 13:00] MED LIST: ACETAMINOPHEN 325 MG TABLET (FP) PO PRN; ALBUTEROL SO4 8 GM HFA INHALER IH PRN; IBUPROFEN 400 MG TABLET (FP) PO PRN; LOPERAMIDE HCL 2 MG CAPSULE PO PRN; MAG HYDROX/AL HYDROX/SIMETH 30 ML UNIT-DOSE CUP PO PRN; MAGNESIUM CITRATE 300 ML BOTTLE PO PRN; MAGNESIUM HYDROX 2400MG/30ML ORAL SUSPENSION 30 ML CUP PO PRN; MENTHOL/PHENOL 1 EACH UD MM PRN; NICOTINE POLACRILEX 4 MG GUM BUC PRN; P-EPHED 60MG/TRIPROLIDI 2.5MG TABLET PO PRN; guaiFENesin 200 MG/10 ML 10 ML UNIT-DOSE CUPS PO PRN
[2019-04-23] MEDS: THIAMINE HCL 100 MG TABLET (FP) PO SCH (21:39)
[2019-04-23] MEDS: RANITIDINE HCL 150 MG TABLET (FP) PO SCH (21:40)
[2019-04-23] MEDS ORDERED: MELATONIN 5 MG TABLETS PO PRN (22:00)
[2019-04-24] MEDS ORDERED: PT OWN MED DRAWER 7, Y5N ONE (09:04)
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
[2019-04-24] MEDS: predniSONE 20 MG TABLET (UD) PO SCH (11:14)
[2019-04-24] MEDS: FLUoxetine HCL 20 MG CAPSULE (FP) PO SCH (11:15)
[2019-04-24] MEDS: PRENATAL VITAMINS W/ FOLIC ACID TABLET (FP) PO SCH (11:15)
[2019-04-24] MEDS: ARIPiprazole 10 MG TABLET PO SCH (11:15)
[2019-04-24] MEDS: RANITIDINE HCL 150 MG TABLET (FP) PO SCH ×2 (11:15→21:17)
[2019-04-24] MEDS: FERROUS SO4 325 MG TABLET (FP) PO SCH (11:16)
[2019-04-24] MEDS: GABAPENTIN 300 MG CAPSULE (FP) PO SCH ×2 (11:16→21:17)
[2019-04-24] MEDS ORDERED: CYCLOBENZAPRINE HCL 10 MG TABLET (FP) PO PRN (15:59)
[2019-04-24] MEDS: THIAMINE HCL 100 MG TABLET (FP) PO SCH (21:17)
[2019-04-24] MEDS: DOXEPIN HCL 50 MG CAPSULE PO SCH (21:18)
[2019-04-25 07:28] VITALS: BP 107/69; PULSE 83; TEMP 97.6
[2019-04-25] MEDS ORDERED: PT OWN MED DRAWER 7, Y5N ONE (08:52)
[2019-04-25] MEDS: PRENATAL VITAMINS W/ FOLIC ACID TABLET (FP) PO SCH (09:58)
[2019-04-25] MEDS: GABAPENTIN 300 MG CAPSULE (FP) PO SCH ×2 (09:58→22:57)
[2019-04-25] MEDS: predniSONE 20 MG TABLET (UD) PO SCH (09:58)
[2019-04-25] MEDS: RANITIDINE HCL 150 MG TABLET (FP) PO SCH ×2 (09:58→22:58)
[2019-04-25] MEDS: FLUoxetine HCL 20 MG CAPSULE (FP) PO SCH (09:59)
[2019-04-25] MEDS: ARIPiprazole 10 MG TABLET PO SCH (09:59)
[2019-04-25] MEDS: FERROUS SO4 325 MG TABLET (FP) PO SCH (09:59)
--- NOTE | 2019-04-25 18:56 | DS ---
[facility] Detox Discharge Summary Admission Date: 04/23/19 Discharge Date: 04/25/19 - History Present History: Alcohol Dependence, Cocaine Dependence, Opioid Dependence Pertinent Past History: Asthma, depression, schizophrenia, GERD and anemia - Physical Exam Results Vital Signs: Vital Signs Temperature 97.6 F 04/25/19 07:27 Pulse Rate 83 04/25/19 07:27 Respiratory Rate 18 04/25/19 07:27 Blood Pressure 107/69 04/25/19 07:27 O2 Sat by Pulse Oximetry (%) - Medication Discharge Medications: Ambulatory Orders Aripiprazole [Abilify -] 20 mg PO DAILY 05/21/16 Fluoxetine HCl [Prozac -] 40 mg PO DAILY #60 cap 06/28/17 Gabapentin [Neurontin -] 300 mg PO BID #60 cap 06/28/17 Ranitidine [Zantac -] 150 mg PO BID #60 tablet 07/03/17 Albuterol Sulfate Inhaler - [Ventolin HFA Inhaler -] 0 puff IH Q4H PRN #1 inhaler 04/22/19 Doxepin HCl [Sinequan -] 100 mg PO HS 04/23/19 Ferrous Sulfate [Feosol] 325 mg PO DAILY 04/23/19 Prednisone [Deltasone] 20 mg PO DAILY 04/23/19 - Diagnosis (1) Substance induced mood disorder Current Visit: Yes Status: Acute (2) Nicotine dependence Current Visit: Yes Status: Chronic (3) Schizoaffective disorder Current Visit: Yes Status: Chronic Qualifiers: Schizoaffective disorder type: bipolar Qualified Code(s): F25.0 - Schizoaffective disorder, bipolar type (4) Alcohol dependence with withdrawal Current Visit: No Status: Acute Qualifiers: Complication of substance-induced condition: uncomplicated Qualified Code(s ): F10.230 - Alcohol dependence with withdrawal, uncomplicated (5) Opioid dependence with withdrawal Current Visit: No Status: Acute (6) Anemia Current Visit: No Status: Chronic Qualifiers: Anemia type: iron deficiency Iron deficiency anemia type: unspecified iron deficiency Qualified Code(s): D50.9 - Iron deficiency anemia, unspecified (7) GERD (gastroesophageal reflux disease) Current Visit: No Status: Chronic Qualifiers: Esophagitis presence: without esophagitis Qualified Code(s): K21.9 - Gastro -esophageal reflux disease without esophagitis - AMA Did Patient Leave Against Medical Advice: Yes
--- NOTE | 2019-04-25 18:59 | PN ---
[facility] Progress Note Note: [facility] *LIVE* Discharge Summary Patient Name: GEORGINA LOMBARDO Date of : 76 Patient Status: Inpatient Attending Provider: Madelyn Franz Date: 04/25/19 18:54 Initialization Date: 04/25/19 18:54 [facility] Detox Discharge Summary Admission Date: 04/23/19 Discharge Date: 04/25/19 - History Present History: Alcohol Dependence, Cocaine Dependence, Opioid Dependence Pertinent Past History: Asthma, depression, schizophrenia, GERD and anemia - Physical Exam Results Vital Signs: Vital Signs Temperature 97.6 F 04/25/19 07:27 Pulse Rate 83 04/25/19 07:27 Respiratory Rate 18 04/25/19 07:27 Blood Pressure 107/69 04/25/19 07:27 O2 Sat by Pulse Oximetry (%) - Medication Discharge Medications: Ambulatory Orders Aripiprazole [Abilify -] 20 mg PO DAILY 05/21/16 Fluoxetine HCl [Prozac -] 40 mg PO DAILY #60 cap 06/28/17 Gabapentin [Neurontin -] 300 mg PO BID #60 cap 06/28/17 Ranitidine [Zantac -] 150 mg PO BID #60 tablet 07/03/17 Albuterol Sulfate Inhaler - [Ventolin HFA Inhaler -] 0 puff IH Q4H PRN #1 inhaler 04/22/19 Doxepin HCl [Sinequan -] 100 mg PO HS 04/23/19 Ferrous Sulfate [Feosol] 325 mg PO DAILY 04/23/19 Prednisone [Deltasone] 20 mg PO DAILY 04/23/19 - Diagnosis (1) Substance induced mood disorder Current Visit: Yes Status: Acute (2) Nicotine dependence Current Visit: Yes Status: Chronic (3) Schizoaffective disorder Current Visit: Yes Status: Chronic Qualifiers: Schizoaffective disorder type: bipolar Qualified Code(s): F25.0 - Schizoaffective disorder, bipolar type (4) Alcohol dependence with withdrawal Current Visit: No Status: Acute Qualifiers: Complication of substance-induced condition: uncomplicated Qualified Code(s ): F10.230 - Alcohol dependence with withdrawal, uncomplicated (5) Opioid dependence with withdrawal Current Visit: No Status: Acute (6) Anemia Current Visit: No Status: Chronic Qualifiers: Anemia type: iron deficiency Iron deficiency anemia type: unspecified iron deficiency Qualified Code(s): D50.9 - Iron deficiency anemia, unspecified (7) GERD (gastroesophageal reflux disease) Current Visit: No Status: Chronic Qualifiers: Esophagitis presence: without esophagitis Qualified Code(s): K21.9 - Gastro -esophageal reflux disease without esophagitis - AMA Did Patient Leave Against Medical Advice: Yes
[2019-04-25] MEDS: DOXEPIN HCL 50 MG CAPSULE PO SCH (22:57)
[2019-04-25] MEDS: THIAMINE HCL 100 MG TABLET (FP) PO SCH (22:58)
== END 2019-04-25 23:04 | disposition left against medical advice (07) | DRG 770 ==
LOC: YASAS 13:00 → Y3E 13:01
PROVIDERS: ADMIT Neuromusculoskeletal Medicine & OMM; ATTEND Neuromusculoskeletal Medicine & OMM
PROC: HZ42ZZZ Group Counseling for Substance Abuse Treatment, Cognitive-Behavioral (ICD-10-PCS; principal; 2019-04-23)
DX: F11.20 Opioid dependence, uncomplicated (principal); F10.20 Alcohol dependence, uncomplicated; F17.210 Nicotine dependence, cigarettes, uncomplicated; F19.24 Other psychoactive substance dependence with psychoactive substance-induced mood disorder; F25.0 Schizoaffective disorder, bipolar type; D50.9 Iron deficiency anemia, unspecified; K21.9 Gastro-esophageal reflux disease without esophagitis; Z59.0 Homelessness

== ENCOUNTER 2020-07-08 14:49 | Inpatient (IN) | payer OTHER ==
--- NOTE | 2020-07-08 15:46 | BHS.RME ---
Substance Use & Tx History - Substance Use History Heroin Substance amount: 12 bags Frequency of use: Daily Substance route: Inhalation (ex: sniffing or snorting), Injection (ex: intravenous or skin popping) Date of Last Use: 07/08/20 Nicotine Substance amount: 10 cigs Frequency of use: Daily Substance route: Smoking Date of Last Use: 07/08/20 Methamphetamine Substance amount: one gram Frequency of use: Daily Substance route: Injection (ex: intravenous or skin popping) Date of Last Use: 07/01/20 - Last Treatment Date of last treatment: 03/06 to 03/23 detox and rehab Physical/Psych/Mental Status - Behavior General Behavior: Decreased activity Eye Contact: Normal - Thinking Thought Processes: Tight Thought content: Future oriented - Physical Health Problems Is patient presently having any pain?: Yes (left ankle fracture last year) Does patient presently have any injuries (include location): No Does patient currently have a fever: No COWS - Scale Resting Pulse: 0= VT 80 or Below Sweatin= No chills or Flushing Restless Observation: 1= Difficult to Sit Still Pupil Size: 1= Pupils >than Normal Bone or Joint Aches: 1= Mild Discomfort Runny Nose/ Eye Tearin= None GI Upset > 30mins: 0= None Tremor Observation: 0= None Yawning Observation: 0= None Anxiety or Irritability: 1=Feels Anxious/Irritable Goose Flesh Skin: 0=Smooth Skin (Used heroin 3 hours prior, this obscures full extent of withdrawal. High risk relapse) COWS Score: 4
[2020-07-08 17:02] VITALS: BMI 24.7
--- NOTE | 2020-07-08 17:47 | HP ---
COWS - Scale Resting Pulse: 1= NC 81-100 (HR: 84) Sweatin=Flushed/Facial Moisture (Increased facial moisture) Restless Observation: 1= Difficult to Sit Still Pupil Size: 0= Normal to Room Light (Pupils = 2 mm) Bone or Joint Aches: 0= None Runny Nose/ Eye Tearin= None GI Upset > 30mins: 1= Stomach Cramp Tremor Observation: 1= Tremor [place], Not Seen Yawning Observation: 1= 1-2x During Session Anxiety or Irritability: 4=Extreme Anxiety Goose Flesh Skin: 0=Smooth Skin (Used heroin 3 hours prior, this obscures full extent of withdrawal. High risk relapse) COWS Score: 11 (Patient has inflammed track hall) CIWA Score - Admission Criteria OASAS Guidelines: Admission for Medically Managed Detox: Requires at least one of the followin. CIWA greater than 12 2. Seizures within the past 24 hours 3. Delirium tremens within the past 24 hours 4. Hallucinations within the past 24 hours 5. Acute intervention needed for co occurring medical disorder 6. Acute intervention needed for co occurring psychiatric disorder 7. Severe withdrawal that cannot be handled at a lower level of care (continued vomiting, continued diarrhea, abnormal vital signs) requiring intravenous medication and/or fluids 8. Admitting History and Physical - Past Medical History ...LMP: 03/05/20 - Smoking History Smoking history: Current every day smoker Have you smoked in the past 12 months: Yes Aproximately how many cigarettes per day: 20 - Alcohol/Substance Use Hx Alcohol Use: Yes Admission ROS S - HPI Chief Complaint: "I'm here to get off crack and dope and I'm tired of beating up my life" Allergies/Adverse Reactions: Allergies Allergy/AdvReac Type Severity Reaction Status Date / Time No Known Allergies Allergy Verified 07/08/20 17:24 History of Present Illness: 39 yo presents w/ opioid withdrawal symptoms, seeking detox. IVANIA: 0.0 UTox: + THC/FEN/ROSE MARY/MOP/BZO HCG: Neg Denies hx seizures, blackouts or overdoses. Opioid use disorder since age 36. Currently using 12 bags/day - nasally and injects. Has a narcan kit at home. Xanax use began at age 29. Currently uses 4-5- 1mg sticks/day Cocaine/Crack use began at age 29. Currently using $200/day. Marijuana use began at age 15. Smokes once/week Nicotine use disorder since age 10. Smokes 10 cig/day. PMHx: Asthma - no recent exacerbation, MHHx: Bipolar. Depression. Anxiety. Insomnia. Does not see a psychiatrist. Meds are prescribed by her PCP. Denies thoughts of harming self or others. 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 Patient Name: Georgina Siegel Date: 1980 Address: [address] [place] [address] Sex: Female Rx Written Rx Dispensed Drug Quantity Days Supply Prescriber Name Payment Method Dispenser 04/22/2020 04/26/2020 suboxone 12 mg-3 mg sl film 30 15 [place] Medicaid [facility] 04/15/2020 04/15/2020 suboxone 8 mg-2 mg sl film 10 5 Alyssa Colindres MD Medicaid [facility] 03/01/2020 03/01/2020 buprenorphine-naloxone 8-2 mg sl film 8 4 Alyssa Colindres MD [facility] Date: 1980 Address: [address] [place] [address] Sex: Female Rx Written Rx Dispensed Drug Quantity Days Supply Prescriber Name Payment Method Dispenser 03/23/2020 03/23/2020 buprenorphine-naloxone 8-2 mg sl film 4 2 Ashley Dominique NP Insurance [facility] Patient Name: GEORGINA SIEGEL Date: 1980 Address: [address] [place] [id number] Sex: Female Rx Written Rx Dispensed Drug Strength Quantity Days Supply Prescriber Name Payment Method 05/19/2019 05/19/2019 BUPRENORPHINE 2 MG TABLET SL 21.0 5 JENELLE SOLIS Mosqueda Dispenser [facility] Exam Limitations: No Limitations - Ebola screening Have you traveled outside of the country in the last 21 days: No (Denies COVID exposure) Have you had contact with anyone from an Ebola affected area: No Have you been sick,other than usual withdrawal symptoms: No Do you have a fever: No - Review of Systems Constitutional: Chills, Changes in sleep (Difficulty staying asleep), Weight Stable EENT: reports: Blurred Vision, Nose Congestion Respiratory: reports: No Symptoms reported Cardiac: reports: Irregular Heart Rate GI: reports: Nausea, Indigestion (Acid Reflux) : reports: No Symptoms Reported Musculoskeletal: reports: No Symptoms Reported Integumentary: reports: No Symptoms Reported Neuro: reports: Headache (Headache achy, temples "7") Endocrine: reports: No Symptoms Reported Hematology: reports: No Symptoms Reported Psychiatric: reports: Mood/Affect Appropiate, Agitated, Anxious, Depressed (Denies thoughts of harming self or others.) Patient History - Patient Medical History Hx Anemia: No Hx Asthma: Yes Hx Chronic Obstructive Pulmonary Disease (COPD): No Hx Cancer: No Hx Cardiac Disorders: No Hx Congestive Heart Failure: No Hx Hypertension: No Hx Hypercholesterolemia: No Hx Pacemaker: No HX Cerebrovascular Accident: No Hx Seizures: No Hx Dementia: No Hx Diabetes: No Hx Gastrointestinal Disorders: No Hx Liver Disease: No Hx Genitourinary Disorders: No Hx Sexually Transmitted Disorders: No Hx Renal Disease (ESRD): No Hx Thyroid Disease: No Hx Human Immunodeficiency Virus (HIV): No Hx Hepatitis C: No Hx Depression: Yes Hx Suicide Attempt: No Hx Bipolar Disorder: Yes Hx Schizophrenia: Yes - Patient Surgical History Past Surgical History: Yes Hx Neurologic Surgery: No Hx Cataract Extraction: No Hx Cardiac Surgery: No Hx Lung Surgery: No Hx Breast Surgery: No Hx Breast Biopsy: No Hx Abdominal Surgery: Yes (ectopic - removed left tube/ovary 2011) Hx Appendectomy: No Hx Cholecystectomy: No Hx Genitourinary Surgery: No Hx Section: No Hx Orthopedic Surgery: Yes (REMOVAL OF GANGLION LEFT WRIST 09/21) Hx Hysterectomy: No Other Surgical History: REMOVED LEFT TUBE AND OVARY 2011 Anesthesia Reaction: No - PPD History Previous Implant?: Yes Documented Results: Negative w/proof Implanted On Prior [facility] Admission?: Yes Date: 03/08/20 Results: 0 mm PPD to be Administered?: No - Reproductive History Patient is a Female of Child Bearing Age (11 -55 yrs old): Yes Last Menstrual Period: 06/23/20 Patient : No - Smoking Cessation Smoking history: Current every day smoker Have you smoked in the past 12 months: Yes Aproximately how many cigarettes per day: 10 Cigars Per Day: 0 Hx Chewing Tobacco Use: No Initiated information on smoking cessation: Yes 'Breaking Loose' booklet given: 07/08/20 - Substance & Tx. History Hx Alcohol Use: No Hx Substance Use: Yes Substance Use Type: Cocaine, Heroin, Marijuana, Opiates, Tranquilizers (Benzos) Hx Substance Use Treatment: Yes (detox, rehab, past Suboxone) Admission Physical Exam S - Vital Signs Vital Signs: Vital Signs - 24 hr 07/08/20 17:00 Temperature 97.8 F Pulse Rate 67 Respiratory 17 Rate Blood Pressure 107/75 - Physical General Appearance: Yes: Nourished, Mild Distress, Tremorous, Irritable, Sweating (Increased facial moisture), Anxious HEENTM: Yes: EOMI, Hearing grossly Normal, Normal Voice, ROHIT (Pupils = 2 mm), Pharynx Normal Respiratory: Yes: Lungs Clear, Normal Breath Sounds, No Respiratory Distress Neck: Yes: No masses,lesions,Nodules, Supple Breast: Yes: Breast Exam Deferred Cardiology: Yes: Regular Rhythm (HR: 84), Regular Rate Abdominal: Yes: Non Tender, Flat, Soft, Increased Bowel Sounds Genitourinary: Yes: Within Normal Limits Back: Yes: Normal Inspection Musculoskeletal: Yes: full range of Motion, Gait Steady Extremities: Yes: Normal Capillary Refill, Tremors Neurological: Yes: Alert, Motor Strength 5/5, Normal Response, Disoriented (Unsure of month or date. Knows year and location) Integumentary: Yes: Normal Color, Warm, Track Hall (Increased warmth and induration at track hall antecubital areas) Lymphatic: Yes: Within Normal Limits - Diagnostic (1) History of asthma Current Visit: Yes Status: Chronic (2) Cellulitis of arm Current Visit: Yes Status: Chronic Qualifiers: Laterality: unspecified laterality Qualified Code(s): L03.119 - Cellulitis of unspecified part of limb Comment: Both antecubital areas (3) IVDU (intravenous drug user) Current Visit: Yes Status: Chronic (4) Opioid dependence with withdrawal Current Visit: Yes Status: Acute (5) Sedative, hypnotic or anxiolytic abuse Current Visit: Yes Status: Chronic (6) Cannabis abuse Current Visit: Yes Status: Chronic (7) Cocaine dependence Current Visit: Yes Status: Chronic Qualifiers: Substance use status: uncomplicated Qualified Code(s): F14.20 - Cocaine dependence, uncomplicated (8) GERD (gastroesophageal reflux disease) Current Visit: Yes Status: Chronic Qualifiers: Esophagitis presence: without esophagitis Qualified Code(s): K21.9 - Gastro-esophageal reflux disease without esophagitis (9) Nicotine dependence Current Visit: Yes Status: Chronic Qualifiers: Nicotine product type: cigarettes Substance use status: uncomplicated Qualified Code(s): F17.210 - Nicotine dependence, cigarettes, uncomplicated Cleared for Admission [facility] - Detox or Rehab [facility] Level of Care: Medically Managed Detox Regimen/Protocol: Methadone Claeared for Rehab Admission: No Breathalyzer - Breathalyzer Breathalyzer: 0 Urine Drug Screen - Test Device Lot number: [id number] Expiration date: 05/10/22 - Control Is test valid?: Yes - Results Drug screen NEGATIVE: No Urine drug screen results: THC-Marijuana, ROSE MARY-Cocaine, FEN-Fentanyl, MOP- Opiates, BZO-Benzodiazepines Inpatient Rehab Admission - Rehab Decision to Admit Inpatient rehab admission?: No
[2020-07-08] MEDS ORDERED: ACETAMINOPHEN 325 MG TABLET (FP) PO PRN ×2 (18:20)
[2020-07-08] MEDS ORDERED: cloNIDine HCL 0.1 MG TABLET PO PRN (18:20)
[2020-07-08] MEDS ORDERED: MAGNESIUM CITRATE 300 ML BOTTLE PO PRN (18:20)
[2020-07-08] MEDS ORDERED: MAG HYDROX/AL HYDROX/SIMETH 30 ML UNIT-DOSE CUP PO PRN (18:20)
[2020-07-08] MEDS ORDERED: NICOTINE POLACRILEX 2 MG GUM BUC PRN (18:20)
[2020-07-08] MEDS ORDERED: BISMUTH SUBSALICYLATE 524 MG/30 ML UD PO PRN (18:20)
[2020-07-08] MEDS ORDERED: METHOCARBAMOL 500 MG TABLET PO PRN (18:20)
[2020-07-08] MEDS ORDERED: MENTHOL/PHENOL 1 EACH UD MM PRN (18:20)
[2020-07-08] MEDS ORDERED: IBUPROFEN 400 MG TABLET (FP) PO PRN (18:20)
[2020-07-08] MEDS ORDERED: ONDANSETRON *ODT* 4 MG TABLET SL PRN (18:20)
[2020-07-08] MEDS ORDERED: MAGNESIUM HYDROX 2400MG/30ML ORAL SUSPENSION 30 ML CUP PO PRN (18:20)
[2020-07-08] MEDS ORDERED: diazePAM 5 MG TABLET PO PRN (18:24)
[2020-07-08] MEDS ORDERED: ALBUTEROL SO4 HFA INHALER IH PRN (18:26)
--- OUTSIDE RECORDS SUMMARY | 2020-07-08 20:23 | XMS ---
:1980 Author Organization [facility] Support Name Relationship Address Phone UE Unavailable Unavailable Unavailable [place] [address] [place] [address] Re-disclosure Warning The records that you are about to access may contain information from federally- assisted alcohol or drug abuse programs. If such information is present, then the following federally mandated warning applies: This information has been disclosed to you from records protected by federal confidentiality rules (42 CFR part 2). The federal rules prohibit you from making any further disclosure of this information unless further disclosure is expressly permitted by the written consent of the person to whom it pertains or as otherwise permitted by 42 CFR part 2. A general authorization for the release of medical or other information is NOT sufficient for this purpose. The Federal rules restrict any use of the information to criminally investigate or prosecute any alcohol or drug abuse patient.The records that you are about to access may contain highly sensitive health information, the redisclosure of which is protected by Article 27-F of the [facility] Public Health law. If you continue you may haveaccess to information: Regarding HIV / AIDS; Provided by facilities licensed or operated by the [facility] Office of Mental Health; or Provided by the [facility] Office for People With Developmental Disabilities. If such information is present, then the following [facility] mandated warning applies: This information has been disclosed to you from confidential records which are protected by state law. State law prohibits you from making any further disclosure of this information without the specific written consent of the person to whom it pertains, or as otherwise permitted by law. Any unauthorized further disclosure in violation of state law may result in a fine or fdc sentence or both. A general authorization for the release of medical or other information is NOT sufficient authorization for further disclosure. Insurance Providers Payer name Policy type Policy ID Covered Covered green party's Policy P allen / Coverage green party ID relationship to Lara Inf ormation type lara [employer] [id number] SP [id number] [employer] [id number] SP [id number] [place] MEDICAID [id number] SP [id number] Results ID Date Data Source [id number] 03/06/2020 01:00:00 PM EDT [facility] Name Value Range Interpretation Description Data Sup porting Code Source(s) Document(s ) SARS [facility] CORONAVIRUS 2 RNA This lab was ordered by [facility] and reported by [facility]. Procedure
[2020-07-08] MEDS ORDERED: METHADONE HCL 10 MG TABLET (FOR DETOX USE ONLY) PO ONE (23:00)
[2020-07-08] MEDS: THIAMINE HCL 100 MG TABLET (FP) PO SCH (23:13)
[2020-07-08] MEDS: MELATONIN 5 MG TABLETS PO SCH (23:13)
[2020-07-09] MEDS: CEPHALEXIN MONOHYDRATE 500 MG CAPSULE (UD) PO SCH ×5 (00:37→23:52)
[2020-07-09] MEDS ORDERED: METHADONE HCL 10 MG TABLET (FOR DETOX USE ONLY) ONE (09:07)
[2020-07-09] MEDS ORDERED: METHADONE HCL 5 MG TABLET (FOR DETOX USE ONLY) ONE (09:07)
[2020-07-09 09:40] LABS: HEMATOCRIT 33.6 % (32.4-45.2); HEMOGLOBIN 10.9 GM/dL (10.7-15.3); MCHC 32.5 g/dl (32.0-36.0); MEAN CELL VOLUME 89.1 fl (80-96); MEAN PLT VOLUME 8.4 fl (7.5-11.1); PLATELET COUNT 337 K/MM3 (134-434); RBC 3.77 M/mm3 (3.60-5.2); RDW 14.7 % (11.6-15.6); WHITE BLOOD COUNT 7.1 K/mm3 (4.0-10.0)
[2020-07-09 09:56] LABS: ALBUMIN 2.8 g/dl (3.4-5.0); BLOOD UREA NITROGEN 11.3 mg/dL (7-18); CALCIUM 8.4 mg/dL (8.5-10.1); POTASSIUM 4.2 mmol/L (3.5-5.1)
[2020-07-09] MEDS ORDERED: METHADONE (DETOX) 20 MG, METHADONE (DETOX) 5 MG PO ONE (10:00)
[2020-07-09 10:01] LABS: BILIRUBIN,TOTAL 0.7 mg/dL (0.2-1); CREATININE 0.8 mg/dL (0.55-1.3); TOT PROT 6.8 g/dl (6.4-8.2)
[2020-07-09] MEDS: NICOTINE 14 MG/24 HOURS TOPICAL PATCH TD SCH (11:12)
[2020-07-09] MEDS: PRENATAL VITAMINS W/ FOLIC ACID TABLET (FP) PO SCH (11:12)
[2020-07-09] MEDS ORDERED: FLU VACCINE (FLULAVAL) PF 60 MCG/0.5 ML SYRINGE 2020-2021 IM ONE (12:00)
[2020-07-09] MEDS ORDERED: PNEUMOCOCCAL 23 VACCINE 0.5 ML VIAL IM ONE (12:00)
[2020-07-09] MEDS ORDERED: PNEUMOC 13-VAL CONJ-DIP CRM/PF 0.5 ML DISP.SYRIN IM ONE (12:00)
--- NOTE | 2020-07-09 14:43 | CONSULT ---
[facility] Psychiatric Consult - Data Date of interview: 07/09/20 Admission source: [facility] Identifying data: Patient is approached at bedside for psychiatric evaluation. She refused. No reason given. Ms Siegel is observed resting comfortably in bed. No complaint offered. Nursing staff is informed.
[2020-07-09] MEDS ORDERED: MASKS NR ONE (18:08)
--- NOTE | 2020-07-09 18:57 | PN ---
[facility] COWS - Scale Resting Pulse: 0= NE 80 or Below Sweatin= Chills/Flushing Restless Observation: 1= Difficult to Sit Still Pupil Size: 0= Normal to Room Light Bone or Joint Aches: 1= Mild Discomfort Runny Nose/ Eye Tearin= None GI Upset > 30mins: 0= None Tremor Observation of Outstretched Hands: 2= Slight Tremor Visible Yawning Observation: 1= 1-2x During Session Anxiety or Irritability: 2=Irritable/Anxious Goose Flesh Skin: 3=Piloerection COWS Score: 11 B[facility] Progress Note (SOAP) Subjective: Tremors, Fatigue, Anxious, Sweating, Body Aches. Objective: Patient A & O X 3; In No Acute Distress. 07/09/20 18:57 Vital Signs Temperature 97.8 F 07/09/20 16:32 Pulse Rate 71 07/09/20 16:32 Respiratory Rate 18 07/09/20 16:32 Blood Pressure 135/97 07/09/20 16:32 O2 Sat by Pulse Oximetry (%) 95 07/09/20 16:32 Laboratory Tests 07/09/20 07/09/20 07/09/20 07:30 07:30 07:30 WBC 7.1 RBC 3.77 Hgb 10.9 Hct 33.6 D MCV 89.1 MCH 29.0 D MCHC 32.5 RDW 14.7 D Plt Count 337 D MPV 8.4 Sodium 141 Potassium 4.2 Chloride 110 H Carbon Dioxide 28 Anion Gap 4 L BUN 11.3 Creatinine 0.8 Est GFR (CKD-EPI)AfAm 106.13 Est GFR (CKD-EPI)NonAf 91.57 Random Glucose 81 Calcium 8.4 L Total Bilirubin 0.7 AST 20 ALT 23 Alkaline Phosphatase 84 Total Protein 6.8 Albumin 2.8 L Syphilis Serology Non-reactive Lab results noted. Assessment: 07/09/20 18:58 WITHDRAWAL SYMPTOMS. Plan: Continue Detox.
[2020-07-09] MEDS ORDERED: chlordiazePOXIDE HCL 25 MG CAPSULE PO PRN (23:26)
--- NOTE | 2020-07-09 23:27 | PN ---
[facility] Progress Note Note: started on librium taper for benzo withdrawal. client request librium vs valium
[2020-07-09] MEDS: MELATONIN 5 MG TABLETS PO SCH (23:52)
[2020-07-09] MEDS: THIAMINE HCL 100 MG TABLET (FP) PO SCH (23:52)
[2020-07-09] MEDS: chlordiazePOXIDE HCL 25 MG CAPSULE PO SCH (23:52)
[2020-07-10] MEDS: CEPHALEXIN MONOHYDRATE 500 MG CAPSULE (UD) PO SCH ×2 (06:52→12:33)
[2020-07-10] MEDS: chlordiazePOXIDE HCL 25 MG CAPSULE PO SCH ×2 (06:52→12:33)
[2020-07-10] MEDS ORDERED: METHADONE HCL 10 MG TABLET (FOR DETOX USE ONLY) PO ONE (10:00)
[2020-07-10 12:28] VITALS: PULSE 78
[2020-07-10] MEDS: PRENATAL VITAMINS W/ FOLIC ACID TABLET (FP) PO SCH (12:33)
[2020-07-10] MEDS: NICOTINE 14 MG/24 HOURS TOPICAL PATCH TD SCH (12:33)
[2020-07-10 13:41] VITALS: BP 118/73; TEMP 97.8
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
[2020-07-11] MEDS ORDERED: chlordiazePOXIDE HCL 25 MG CAPSULE PO SCH (05:00)
[2020-07-11] MEDS ORDERED: diazePAM 5 MG TABLET PO PRN (06:00)
[2020-07-11] MEDS ORDERED: METHADONE (DETOX) 10 MG, METHADONE (DETOX) 5 MG PO ONE (10:00)
[2020-07-12] MEDS ORDERED: chlordiazePOXIDE HCL 10 MG CAPSULE PO PRN
[2020-07-12] MEDS ORDERED: chlordiazePOXIDE HCL 10 MG CAPSULE PO SCH (05:00)
[2020-07-12] MEDS ORDERED: METHADONE HCL 10 MG TABLET (FOR DETOX USE ONLY) PO ONE (10:00)
[2020-07-13] MEDS ORDERED: chlordiazePOXIDE HCL 10 MG CAPSULE PO SCH (05:00)
[2020-07-13] MEDS ORDERED: METHADONE HCL 5 MG TABLET (FOR DETOX USE ONLY) PO ONE (06:00)
[2020-07-14] MEDS ORDERED: chlordiazePOXIDE HCL 10 MG CAPSULE PO ONE (05:00)
== END 2020-07-10 14:47 | disposition left against medical advice (07) | DRG 770 ==
LOC: YASAS 14:49 → Y6N 18:20
PROVIDERS: ADMIT Allergy & Immunology; ATTEND Allergy & Immunology
PROC: HZ2ZZZZ Detoxification Services for Substance Abuse Treatment (ICD-10-PCS; principal; 2020-07-08)
DX: F11.23 Opioid dependence with withdrawal (principal); F13.230 Sedative, hypnotic or anxiolytic dependence with withdrawal, uncomplicated; F14.20 Cocaine dependence, uncomplicated; F12.20 Cannabis dependence, uncomplicated; F17.210 Nicotine dependence, cigarettes, uncomplicated; F31.9 Bipolar disorder, unspecified; F20.9 Schizophrenia, unspecified; F41.9 Anxiety disorder, unspecified; G47.00 Insomnia, unspecified; J45.909 Unspecified asthma, uncomplicated; K21.9 Gastro-esophageal reflux disease without esophagitis; L03.119 Cellulitis of unspecified part of limb; Z90.79 Acquired absence of other genital organ(s); Z90.721 Acquired absence of ovaries, unilateral; Z98.890 Other specified postprocedural states; Z59.0 Homelessness
CPT/HCPCS: 36415; 80053; 81025; 85027; 86780; U0003